=== PATIENT | female | born 1965 | race Caucasian/White ===

== ENCOUNTER 2019-05-21 10:17 | Day surgery (SDC) | payer OTHER ==
[2019-05-17 15:55] LABS: Urine Appearance CLEAR; Urine Bilirubin NEGATIVE (NEG); Urine Blood NEGATIVE (NEG); Urine Color YELLOW; Urine Glucose NEGATIVE (NEG); Urine Protein NEGATIVE (NEG); Urine Specific Gravity 1.025 (1.005-1.030); Urine Urobilinogen 0.2 mg/dL (0.2-1.0); Urine pH 6.5 (5.0-7.0)
[2019-05-17 15:56] LABS: Urine Microscopic Reflex NO UMIC
[2019-05-17 15:57] LABS: Absolute Lymphocytes (CBC) 1.4 K/uL (0.7-4.9); Basophils % 0.4 % (0-1.3); Hematocrit 32.1 % (36.0-45.0); Lymphocytes % 20.8 % (15.3-44.8); MPV 9.1 fL (7.6-11.3)
[2019-05-17 16:07] LABS: BUN Blood Urea Nitrogen 7 mg/dL (7-18); Bicarbonate 32 mmol/L (21-32); Glucose Level 85 mg/dL (74-106); Potassium 3.5 mmol/L (3.5-5.1); Sodium Level 143 mmol/L (136-145)
[2019-05-17 16:09] LABS: Protime INR 1.44
[2019-05-17 17:31] LABS: Anisocytosis 1+; Blood Morphology Comment NOTED (NOT SEEN); Hypochromasia 2+; Platelet Estimate ADEQ
[2019-05-17 17:32] LABS: Burr Cells 2+; Elliptocytes 1+; Poikilocytosis 2+
--- OUTSIDE RECORDS SUMMARY | 2019-05-21 10:20 | XMS REPORT | Encounter Summary ---
:1965 Author Care Team Providers Name Role Phone Tex Yip MD Primary Care Provider Unavailable Reason for Visit Follow Up Visit Instructions 1. Lump in left breast unlisted imaging order - breast ultrasound unlisted imaging order - mammo diagnostic left 2. Iron deficiency anemia iron deficiency anemia: care instructions CBC w/ auto diff iron + total iron-binding capacity (TIBC), serum ferritin, serum or plasma folate, serum vitamin B12, serum 3. Vitamin D deficiency vitamin D, 25-hydroxy, total, serum Vitamin D2 50,000 unit capsule 4. Chronic back pain cyclobenzaprine 10 mg tablet 5. Hypothyroidism TSH, serum or plasma 6. Depressive disorder sertraline 100 mg tablet learning about mood disorders 7. Insomnia zolpidem ER 12.5 mg tablet,extended release,multiphase Discussion Note: None recorded. Plan of Care Reminders Provider Appointments Return to on or around [facility] Office 11/24/2018 [facility] CBC W/ Auto 05/25/2018 [place] Diff [facility] (Lab) Iron + 05/25/2018 [place] [facility] Total Iron-binding [facility] (TIBC), Center (Lab) Serum Ferritin, 05/25/2018 [place] Serum or Plasma [facility] (Lab) Folate, 05/25/2018 [place] Serum [facility] (Lab) Vitamin 05/25/2018 [place] [facility] B12, Serum [facility] (Lab) Vitamin D, 05/25/2018 [place] 25-Hydroxy, Total, [facility] Serum [facility] (Lab) TSH, Serum 05/25/2018 [place] [facility] or Plasma [facility] (Lab) Referral None recorded. Procedures None recorded. Surgeries None recorded. Imaging Unlisted 05/25/[address] [place] [address] [facility] (Scheduling) Unlisted 05/25/[address] [place] [facility] [address] [facility] (Scheduling) Medications Name Start Date ciclopirox 8 % topical solution APPLY TO THE AFFECTED AREA(S) BY TOPICAL ROUTE ONCE DAILY PREFERABLY AT BEDTIME OR 8 HOURS BEFORE WASHING cyclobenzaprine 10 mg tablet Take 1 tablet 3 times a day by oral route as needed for 30 days. fluticasone 50 mcg spray hydrocodone 10 mg-acetaminophen 325 mg tablet Take 1 tablet every 4 hours by oral route. levothyroxine 200 mcg tablet Take 1 tablet every day by oral route. Lomotil 2.5 mg-0.025 mg tablet Take 2 tablets 4 times a day by oral route for 10 days. sertraline 100 mg tablet TAKE 1 AND 1/2 TABLETS (150 MG ) BY MOUTH EVERY DAY FOR 90 DAYS. Vitamin D2 take 1 capsule by mouth q 8 hours Vitamin D2 50,000 unit capsule Take 1 capsule twice a week by oral route for 90 days. zolpidem ER 12.5 mg tablet,extended release,multiphase Take 1 tablet every day by oral route for 90 days. Medications Administered None recorded. Vitals Height Weight BMI Blood Pressure 64 in 140 lbs 5 oz 24.1 kg/m2 110/80 mm[Hg] Lab Results Date Name Specimen Result Interpretation Description Value Range Status Address 05/25/2018 [facility] [place] Collection Collection [facility] (Lab): [address] [place] [address] Allergies Code Code System Name Reaction Severity Status Onset NKDA Problems None recorded. Procedures Date Name Performed by Stomach Surgery Procedure Information not available Cholecystectomy Information not available 05/25/[address] [facility] ( Scheduling) [address] [place] [id number] (Work [address]) 05/25/[address] [facility] ( Scheduling) [address] [place] [id number] (Work [address]) Vaccine List None recorded. Social History Smoking Status Never Smoker Past Encounters 05/25/2018 Lump in Left Breast; Iron Deficiency Anemia; Vitamin D Deficiency; Chronic Back Pain; Hypothyroidism; Depressive Disorder; Insomnia Tex Yip MD: [address] [place] [address], [address], [place] [address], Ph. History of Present Illness Note: <p>left breast lump: noticed it 2 weeks ago, not painful, no skin changes, no hx of breastcancer, no family hx of breast cancer, no prior breast surgeries. She is postmenopausal, she had an endomtrial ablation 17 years ago.</p><p>
</p><p>She has a hx of gastric cancer, s/p gastrectomy: sees GI doctor. due for labs</p><p>
</p><p>Chronic vitamin D deficiency: is on supplementation.</p><p>
</p><p>
</p ><p>Chronic insomnia: on ambien ER, working well for her, needs refills.</p> Review of Systems General Adult ROS Reported By: Patient Constitutional: Constitutional: no fever, no night sweats, no significant weight gain, no significant weight loss, no exercise intolerance Cardiovascular: Cardiovascular: no chest pain, no arm pain on exertion, no shortness of breath when walking, no shortness of breath when lying down, no palpitations, no known heart murmur Respiratory: Respiratory: no cough, no wheezing, no shortness of breath, no coughing up blood Gastrointestinal: Gastrointestinal: no abdominal pain, no vomiting, normal appetite, no diarrhea, not vomiting blood Genitourinary: Genitourinary: no incontinence, no difficulty urinating, no hematuria, no increased frequency Musculoskeletal: Musculoskeletal: no muscle aches, no muscle weakness, no arthralgias/joint pain, no back pain, no swelling in the extremities Integumentary: Skin: no abnormal mole, no jaundice, no rashes Neurologic: Neurologic: no loss of consciousness, no weakness, no numbness, no seizures, no dizziness, no headaches Psychiatric: Psych: no depression, feeling safe in relationship, no alcohol abuse Endocrine: Endocrine: no fatigue Hematologic/Lymphatic: Hematologic/Lymphatic no swollen glands, no bruising Physical Exam General Adult Exam - Female Reported By: Patient Constitutional: General Appearance: healthy-appearing, well-nourished, well-developed. Level of Distress: NAD. Ambulation: ambulating normally Psychiatric: Insight: good judgement. Mental Status: active and alert, normal mood, normal affect. Orientation: to time, to place, to person. Memory: recent memory normal, remote memory normal Head: Head: normocephalic, atraumatic ENMT: Ears: no lesions on external ear, EACs clear, TMs clear, TM mobility normal. Hearing: no hearing loss. Nose: no lesions on external nose, nares patent, no septal deviation, nasal passages clear, no sinus tenderness, no nasal discharge. Lips, Teeth, and Gums: no mouth or lip ulcers, no bleeding gums, normal dentition. Oropharynx: moist mucous membranes, no erythema, no exudates, tonsils not enlarged Neck: Neck: supple, trachea midline, no masses, FROM, no carotid bruits. Lymph Nodes: no cervical LAD, no supraclavicular LAD, no axillary LAD, no inguinal LAD. Thyroid: no enlargement, non-tender, no nodules Lungs: Respiratory effort: no dyspnea. Percussion: no dullness, flatness, or hyperresonance. Auscultation: breath sounds normal, good air movement, CTA except as noted, no wheezing, no rales/crackles, no rhonchi Cardiovascular: Apical Impulse: not displaced. Heart Auscultation: RRR, normal S1, normal S2, no murmurs, no rubs, no gallops. Neck vessels: no carotid bruits. Pulses including femoral / pedal: normal throughout Breast: Breast: normal appearance, no abnormal secretions, abnormal tenderness, fibrocystic Abdomen: Bowel Sounds: normal. Inspection and Palpation: soft, non-distended, no tenderness, no guarding, no rebound tenderness, no masses, no CVA tenderness. Liver: non-tender, no hepatomegaly. Spleen: non-tender, no splenomegaly. Hernia: none palpable Musculoskeletal:: Motor Strength and Tone: normal motor strength, normal tone. Joints, Bones, and Muscles: normal movement of all extremities, no bony abnormalities, no contractures, no malalignment, no tenderness. Extremities: no cyanosis, no edema, no varicosities, no palpable cord Neurologic: Gait and Station: normal gait, normal station. Cranial Nerves: grossly intact. Sensation: grossly intact, monofilament test intact. Reflexes: DTRs 2+ bilaterally throughout. Coordination and Cerebellum: [id number] intact, no tremor Skin: Inspection and palpation: no rash, no lesions, no ulcer, no abnormal nevi, no induration, no nodules, good turgor, no jaundice. Nails: normal
--- OUTSIDE RECORDS SUMMARY | 2019-05-21 10:20 | XMS REPORT | Encounter Summary ---
:1965 Author Care Team Providers Name Role Phone Tex Yip MD Primary Care Provider Unavailable Reason for Visit Follow Up Results Instructions 1. Iron deficiency anemia iron deficiency anemia: care instructions 2. Chronic back pain cyclobenzaprine 10 mg tablet 3. Hypothyroidism 4. Depressive disorder learning about mood disorders 5. Insomnia insomnia: care instructions zolpidem ER 12.5 mg tablet,extended release,multiphase 6. Seasonal allergic rhinitis seasonal allergies: care instructions Depo-Medrol 40 mg/mL suspension for injection fluticasone propionate 50 mcg/actuation nasal spray,suspension 7. Screening for malignant neoplasm of breast learning about breast cancer screening MAMMO, screening, digital, bilateral Discussion Note: None recorded. Plan of Care Reminders Provider Appointments Return to on or around [facility] Office 01/25/2019 [facility] None recorded. Referral None recorded. Procedures None recorded. Surgeries None recorded. Imaging MAMMO, 10/25/2018 [place] Screening, Digital, [facility] (Scheduling) Medications Name Start Date betamethasone, augmented 0.05 % topical cream ciclopirox 8 % topical solution APPLY TO THE AFFECTED AREA(S) BY TOPICAL ROUTE ONCE DAILY PREFERABLY AT BEDTIME OR 8 HOURS BEFORE WASHING cyclobenzaprine 10 mg tablet Take 1 tablet 3 times a day by oral route as needed for 30 days. Depo-Medrol 40 mg/mL suspension for injection Take 1 mL by injection route. diphenoxylate-atropine 2.5 mg-0.025 mg tablet Take 2 tablets 4 times a day by oral route for 10 days. fluticasone propionate 50 mcg/actuation nasal spray,suspension [place] 1 spray twice a day by intranasal route for 30 days. hydrocodone 10 mg-acetaminophen 325 mg tablet Take 1 tablet every 4 hours by oral route. levothyroxine 200 mcg tablet Take 1 tablet every day by oral route for 90 days. lidocaine 5 % topical patch sertraline 100 mg tablet TAKE 1 AND 1/2 TABLETS (150 MG ) BY MOUTH EVERY DAY FOR 90 DAYS. triamcinolone acetonide 0.147 mg/gram topical aerosol Vitamin D2 take 1 capsule by mouth q 8 hours Vitamin D2 50,000 unit capsule Take 1 capsule twice a week by oral route for 90 days. zolpidem ER 12.5 mg tablet,extended release,multiphase Take 1 tablet every day by oral route for 90 days. Medications Administered Name Date Depo-Medrol 40 mg/mL suspension for injection 9229-76-43J80:05:00 Take 1 mL by injection route. Vitals Height Weight BMI Blood Pressure 64 in 139 lbs 16 oz 24 kg/m2 117/78 mm[Hg] Lab Results None recorded. Allergies Code Code System Name Reaction Severity Status Onset NKDA Problems No Known Problems Procedures Date Name Performed by Stomach Surgery Procedure Information not available Cholecystectomy Information not available 10/25/2018 [facility]AMMO, Screening, Digital, Bilateral [place] [facility] [address] [place] [address] (Work Place) Vaccine List None recorded. Social History Smoking Status Never Smoker Past Encounters 10/25/2018 Iron Deficiency Anemia; Chronic Back Pain; Hypothyroidism; Depressive Disorder ; Insomnia; Seasonal Allergic Rhinitis; Screening for Malignant Neoplasm of Breast Tex Yip MD: [address] [place] [address], [address], [place] [address], Ph. History of Present Illness Note: <p>left [...]
</p><p>Chronic vitamin D deficiency: is on supplementation.</p><p>
</p><p>Chronic insomnia : on ambien ER, working well for her, needs refills.</p><p><br&gt ;</p><p>Chronic Back Pain: no new changes. Is on flexeril. </p&gt ; Review of Systems General Adult ROS Reported [...] DTRs 2+ bilaterally throughout. Coordination and Cerebellum: [id number] intact, no tremor Skin: Inspection and palpation: no rash, no lesions, no ulcer, no abnormal nevi, no induration, no nodules, good turgor, no jaundice. Nails: normal
--- OUTSIDE RECORDS SUMMARY | 2019-05-21 10:21 | XMS REPORT ---
:1965 Author Organization Formerly [facility] Address [address] [place] [address] Care Team Providers Name Role Phone ADAMA WETZEL Unavailable Unavailable ISAIAH KIM Unavailable Unavailable Problems This patient has no known problems. Allergies, Adverse Reactions, Alerts This patient has no known allergies or adverse reactions. Medications This patient has no known medications. Results Test Description Test Time Test Comments Text Results Atomic Results Result Comments BASIC METABOLIC PANEL 2019-04-09 06:56:00 Test Item Value Reference Range Comments SODIUM (BEAKER) (test 137 meq/L 136-145 tpxq=818) POTASSIUM (BEAKER) (test 3.7 meq/L 3.5-5.1 lfaq=354) CHLORIDE (BEAKER) (test 106 meq/L 98-107 ekxn=880) CO2 (BEAKER) (test 25 meq/L 22-29 qway=485) BLOOD UREA NITROGEN 7 mg/dL 7-21 (BEAKER) (test oqxl=592) CREATININE (BEAKER) (test 0.57 mg/dL 0.57-1.25 zvsd=278) GLUCOSE RANDOM (BEAKER) 80 mg/dL 70-105 (test fjnd=171) CALCIUM (BEAKER) (test 8.3 mg/dL 8.4-10.2 yawv=480) EGFR (BEAKER) (test 111 mL/min/1.73 sq m ESTIMATED GFR IS NOT hiiy=9821) ACCURATE CREATININE CLEARANCE IN PREDICTING GLOMERULAR FILTRATION RATE. ESTIMATED GFR IS NOT APPLICABLE FOR DIALYSIS PATIENTS. CBC W/PLT COUNT & AUTO [id number] 05:34:00 Test Item Value Reference Range Comments WHITE BLOOD CELL COUNT (BEAKER) (test kblx=575) 6.9 K/ L 3.5-10.5 RED BLOOD CELL COUNT (BEAKER) (test wgya=391) 3.80 M/ L 3.93-5.22 HEMOGLOBIN (BEAKER) (test oqjh=333) 11.1 GM/DL 11.2-15.7 HEMATOCRIT (BEAKER) (test zxpv=412) 34.9 % 34.1-44.9 MEAN CORPUSCULAR VOLUME (BEAKER) (test ugol=904) 91.8 fL 79.4-94.8 MEAN CORPUSCULAR HEMOGLOBIN (BEAKER) (test 29.2 pg 25.6-32.2 nxko=756) MEAN CORPUSCULAR HEMOGLOBIN CONC (BEAKER) (test 31.8 GM/DL 32.2-35.5 wavg=636) RED CELL DISTRIBUTION WIDTH (BEAKER) (test 23.7 % 11.7-14.4 msfz=977) PLATELET COUNT (BEAKER) (test qhhi=098) 389 K/CU MM 150-450 MEAN PLATELET VOLUME (BEAKER) (test ifji=212) 10.7 fL 9.4-12.3 NUCLEATED RED BLOOD CELLS (BEAKER) (test 0 /100 WBC 0-0 kjai=932) NEUTROPHILS RELATIVE PERCENT (BEAKER) (test 72 % wiws=864) LYMPHOCYTES RELATIVE PERCENT (BEAKER) (test 12 % wdml=564) MONOCYTES RELATIVE PERCENT (BEAKER) (test 9 % bepi=797) EOSINOPHILS RELATIVE PERCENT (BEAKER) (test 5 % yskm=324) BASOPHILS RELATIVE PERCENT (BEAKER) (test 1 % svuu=736) NEUTROPHILS ABSOLUTE COUNT (BEAKER) (test 4.95 K/ L 1.56-6.13 zeko=631) LYMPHOCYTES ABSOLUTE COUNT (BEAKER) (test 0.85 K/ L 1.18-3.74 plro=323) MONOCYTES ABSOLUTE COUNT (BEAKER) (test 0.64 K/ L 0.24-0.36 wgtv=868) EOSINOPHILS ABSOLUTE COUNT (BEAKER) (test 0.32 K/ L 0.04-0.36 dpio=756) BASOPHILS ABSOLUTE COUNT (BEAKER) (test 0.06 K/ L 0.01-0.08 htkb=416) IMMATURE GRANULOCYTES-RELATIVE PERCENT (BEAKER) 1 % 0-1 (test lqfx=3562) HEMOGLOBIN AND [id number] 17:01:00 Test Item Value Reference Range Comments HEMOGLOBIN (BEAKER) (test egjv=667) 10.5 GM/DL 11.2-15.7 HEMATOCRIT (BEAKER) (test brmy=821) 32.9 % 34.1-44.9 BASIC METABOLIC [id number] 06:22:00 Test Item Value Reference Range Comments SODIUM (BEAKER) (test 140 meq/L 136-145 mmsr=054) POTASSIUM (BEAKER) (test 3.5 meq/L 3.5-5.1 umes=589) CHLORIDE (BEAKER) (test 109 meq/L 98-107 yvus=243) CO2 (BEAKER) (test 26 meq/L 22-29 byrl=732) BLOOD UREA NITROGEN 11 mg/dL 7-21 (BEAKER) (test hwhd=992) CREATININE (BEAKER) (test 0.53 mg/dL 0.57-1.25 tqwm=780) GLUCOSE RANDOM (BEAKER) 71 mg/dL 70-105 (test gfdw=773) CALCIUM (BEAKER) (test 7.7 mg/dL 8.4-10.2 ttvw=882) EGFR (BEAKER) (test 121 mL/min/1.73 sq m ESTIMATED GFR IS NOT ggbs=9789) ACCURATE CREATININE CLEARANCE IN PREDICTING GLOMERULAR FILTRATION RATE. ESTIMATED GFR IS NOT APPLICABLE FOR DIALYSIS PATIENTS. CBC W/PLT COUNT & AUTO [id number] 04:51:00 Test Item Value Reference Range Comments WHITE BLOOD CELL COUNT (BEAKER) (test mpgq=899) 6.8 K/ L 3.5-10.5 RED BLOOD CELL COUNT (BEAKER) (test tjxq=370) 3.45 M/ L 3.93-5.22 HEMOGLOBIN (BEAKER) (test nwpx=941) 10.0 GM/DL 11.2-15.7 HEMATOCRIT (BEAKER) (test qhgz=132) 31.9 % 34.1-44.9 MEAN CORPUSCULAR VOLUME (BEAKER) (test iryk=421) 92.5 fL 79.4-94.8 MEAN CORPUSCULAR HEMOGLOBIN (BEAKER) (test 29.0 pg 25.6-32.2 sfsf=062) MEAN CORPUSCULAR HEMOGLOBIN CONC (BEAKER) (test 31.3 GM/DL 32.2-35.5 kfnt=825) RED CELL DISTRIBUTION WIDTH (BEAKER) (test 23.6 % 11.7-14.4 qmjw=729) PLATELET COUNT (BEAKER) (test pwwh=708) 231 K/CU MM 150-450 MEAN PLATELET VOLUME (BEAKER) (test ibom=453) 11.3 fL 9.4-12.3 NUCLEATED RED BLOOD CELLS (BEAKER) (test 0 /100 WBC 0-0 abbb=076) NEUTROPHILS RELATIVE PERCENT (BEAKER) (test 62 % igzd=177) LYMPHOCYTES RELATIVE PERCENT (BEAKER) (test 26 % klyt=342) MONOCYTES RELATIVE PERCENT (BEAKER) (test 7 % kkir=932) EOSINOPHILS RELATIVE PERCENT (BEAKER) (test 3 % yjfl=407) BASOPHILS RELATIVE PERCENT (BEAKER) (test 1 % jrxt=098) NEUTROPHILS ABSOLUTE COUNT (BEAKER) (test 4.22 K/ L 1.56-6.13 clds=613) LYMPHOCYTES ABSOLUTE COUNT (BEAKER) (test 1.77 K/ L 1.18-3.74 frvj=600) MONOCYTES ABSOLUTE COUNT (BEAKER) (test 0.48 K/ L 0.24-0.36 fvky=645) EOSINOPHILS ABSOLUTE COUNT (BEAKER) (test 0.23 K/ L 0.04-0.36 efni=879) BASOPHILS ABSOLUTE COUNT (BEAKER) (test 0.05 K/ L 0.01-0.08 vxpa=962) IMMATURE GRANULOCYTES-RELATIVE PERCENT (BEAKER) 1 % 0-1 (test qbsn=3461) RAD, ABDOMEN/KUB, 1 VIEW [id number] 17:49:00Reason for exam:->abdominal painShould this be performed at the bedside?->YesFINAL REPORT EXAM: KUB CLINICAL HISTORY: Abdominal pain FINDINGS: There is nonobstructive bowel gas pattern with moderate retained feces throughout the colon. Thoracolumbar spinal rods are partially visualized. Degenerative changes are noted throughout the lumbar spine with lossin disc heights. Signed: Nisreen Javier MDReport Verified Date/Time: 04/07/2019 17:49:23 Reading Location: [facility] [id number] Ortho Consult Reading Room BASI METABOLIC [id number] 06:01:00 Test Item Value Reference Range Comments SODIUM (BEAKER) (test 138 meq/L 136-145 qccr=247) POTASSIUM (BEAKER) (test 3.7 meq/L 3.5-5.1 wqay=076) CHLORIDE (BEAKER) (test 109 meq/L 98-107 ctmq=958) CO2 (BEAKER) (test 27 meq/L 22-29 cxqr=593) BLOOD UREA NITROGEN 10 mg/dL 7-21 (BEAKER) (test cnaz=480) CREATININE (BEAKER) (test 0.63 mg/dL 0.57-1.25 nfgf=535) GLUCOSE RANDOM (BEAKER) 80 mg/dL 70-105 (test mkdk=436) CALCIUM (BEAKER) (test 7.7 mg/dL 8.4-10.2 bntc=499) EGFR (BEAKER) (test 99 mL/min/1.73 sq m ESTIMATED GFR IS NOT bsac=2841) ACCURATE CREATININE CLEARANCE IN PREDICTING GLOMERULAR FILTRATION RATE. ESTIMATED GFR IS NOT APPLICABLE FOR DIALYSIS PATIENTS. CBC W/PLT COUNT & AUTO [id number] 05:46:00 Test Item Value Reference Range Comments WHITE BLOOD CELL COUNT (BEAKER) (test evtw=379) 5.7 K/ L 3.5-10.5 RED BLOOD CELL COUNT (BEAKER) (test bmno=250) 2.70 M/ L 3.93-5.22 HEMOGLOBIN (BEAKER) (test yfec=584) 7.7 GM/DL 11.2-15.7 HEMATOCRIT (BEAKER) (test pagm=329) 25.5 % 34.1-44.9 MEAN CORPUSCULAR VOLUME (BEAKER) (test sggk=277) 94.4 fL 79.4-94.8 MEAN CORPUSCULAR HEMOGLOBIN (BEAKER) (test 28.5 pg 25.6-32.2 hliv=437) MEAN CORPUSCULAR HEMOGLOBIN CONC (BEAKER) (test 30.2 GM/DL 32.2-35.5 iacj=528) RED CELL DISTRIBUTION WIDTH (BEAKER) (test 26.1 % 11.7-14.4 itxi=070) PLATELET COUNT (BEAKER) (test oewj=288) 232 K/CU MM 150-450 MEAN PLATELET VOLUME (BEAKER) (test yuml=456) 11.9 fL 9.4-12.3 NUCLEATED RED BLOOD CELLS (BEAKER) (test 0 /100 WBC 0-0 hpbj=364) NEUTROPHILS RELATIVE PERCENT (BEAKER) (test 55 % btsf=345) LYMPHOCYTES RELATIVE PERCENT (BEAKER) (test 29 % qkyq=806) MONOCYTES RELATIVE PERCENT (BEAKER) (test 9 % chvr=270) EOSINOPHILS RELATIVE PERCENT (BEAKER) (test 5 % nkep=151) BASOPHILS RELATIVE PERCENT (BEAKER) (test 1 % ppul=711) NEUTROPHILS ABSOLUTE COUNT (BEAKER) (test 3.14 K/ L 1.56-6.13 xeqq=544) LYMPHOCYTES ABSOLUTE COUNT (BEAKER) (test 1.64 K/ L 1.18-3.74 xgjd=616) MONOCYTES ABSOLUTE COUNT (BEAKER) (test 0.49 K/ L 0.24-0.36 rkfi=152) EOSINOPHILS ABSOLUTE COUNT (BEAKER) (test 0.26 K/ L 0.04-0.36 koqq=321) BASOPHILS ABSOLUTE COUNT (BEAKER) (test 0.07 K/ L 0.01-0.08 zzrs=196) IMMATURE GRANULOCYTES-RELATIVE PERCENT (BEAKER) 1 % 0-1 (test lvaq=8259) HEMOGLOBIN AND [id number] 00:02:00 Test Item Value Reference Range Comments HEMOGLOBIN (BEAKER) (test obud=298) 8.9 GM/DL 11.2-15.7 HEMATOCRIT (BEAKER) (test wxyy=691) 28.3 % 34.1-44.9 [id number] 05:14:00 Test Item Value Reference Range Comments MAGNESIUM (BEAKER) (test tfck=570) 1.6 mg/dL 1.5-3.0 COMPREHENSIVE METABOLIC [id number] 05:14:00 Test Item Value Reference Range Comments TOTAL PROTEIN (BEAKER) 5.6 gm/dL 6.0-8.5 (test jzhi=306) ALBUMIN (BEAKER) (test 3.1 g/dL 3.5-5.0 prze=4794) ALKALINE PHOSPHATASE 202 U/L 30-115 (BEAKER) (test ldzt=694) BILIRUBIN TOTAL (BEAKER) 0.3 mg/dL 0.1-1.2 (test ciii=980) SODIUM (BEAKER) (test 137 meq/L 135-148 kklc=357) POTASSIUM (BEAKER) (test 4.3 meq/L 3.6-5.5 anpz=211) CHLORIDE (BEAKER) (test 106 meq/L 98-106 gobt=198) CO2 (BEAKER) (test 22 meq/L 20-29 tiaw=400) BLOOD UREA NITROGEN 11 mg/dL 10-26 (BEAKER) (test zhwm=709) CREATININE (BEAKER) (test 0.57 mg/dL 0.50-1.20 npjd=741) GLUCOSE RANDOM (BEAKER) 79 mg/dL 70-110 (test gvou=305) CALCIUM (BEAKER) (test 8.7 mg/dL 8.5-10.5 cmhd=127) AST (SGOT) (BEAKER) (test 85 U/L 5-40 dplm=584) ALT (SGPT) (BEAKER) (test 33 U/L 5-50 tfes=464) EGFR (BEAKER) (test 111 mL/min/1.73 sq ESTIMATED GFR IS NOT ptmt=0809) m ACCURATE CREATININE CLEARANCE IN PREDICTING GLOMERULAR FILTRATION RATE. ESTIMATED GFR IS NOT APPLICABLE FOR DIALYSIS PATIENTS. CBC W/PLT COUNT & AUTO [id number] 04:53:00 Test Item Value Reference Range Comments WHITE BLOOD CELL COUNT (BEAKER) (test qdle=519) 7.5 K/ L 4.0-10.0 RED BLOOD CELL COUNT (BEAKER) (test ppbs=706) 2.77 M/ L 4.00-5.00 HEMOGLOBIN (BEAKER) (test oyhf=307) 7.9 GM/DL 12.0-15.5 HEMATOCRIT (BEAKER) (test mlka=626) 26.2 % 36.0-46.0 MEAN CORPUSCULAR VOLUME (BEAKER) (test aiwv=225) 94.6 fL 82.0-99.0 MEAN CORPUSCULAR HEMOGLOBIN (BEAKER) (test 28.5 pg 27.0-33.0 sywd=290) MEAN CORPUSCULAR HEMOGLOBIN CONC (BEAKER) (test 30.2 GM/DL 32.0-36.0 bpcn=293) RED CELL DISTRIBUTION WIDTH (BEAKER) (test 28.1 % 12.0-15.0 hadq=128) PLATELET COUNT (BEAKER) (test nefa=972) 166 K/CU MM 150-430 MEAN PLATELET VOLUME (BEAKER) (test tsjj=924) 12.4 fL 6.0-11.5 NUCLEATED RED BLOOD CELLS (BEAKER) (test 0 /100 WBC 0-0 gqft=136) NEUTROPHILS RELATIVE PERCENT (BEAKER) (test 60 % ojip=988) LYMPHOCYTES RELATIVE PERCENT (BEAKER) (test 28 % qvhi=704) MONOCYTES RELATIVE PERCENT (BEAKER) (test 8 % fioy=384) EOSINOPHILS RELATIVE PERCENT (BEAKER) (test 3 % ysnz=501) BASOPHILS RELATIVE PERCENT (BEAKER) (test 1 % gpcn=510) NEUTROPHILS ABSOLUTE COUNT (BEAKER) (test 4.51 K/ L 1.80-8.00 oxqj=075) LYMPHOCYTES ABSOLUTE COUNT (BEAKER) (test 2.07 K/ L 1.48-4.50 majw=550) MONOCYTES ABSOLUTE COUNT (BEAKER) (test 0.57 K/ L 0.00-1.30 cvfy=204) EOSINOPHILS ABSOLUTE COUNT (BEAKER) (test 0.24 K/ L 0.00-0.50 hgqm=813) BASOPHILS ABSOLUTE COUNT (BEAKER) (test 0.06 K/ L 0.00-0.20 ixuy=388) IMMATURE GRANULOCYTES-RELATIVE PERCENT (BEAKER) 1 % 0-0 (test bgjx=6396) OCCULT BLOOD, [id number] 04:00:00 Test Item Value Reference Range Comments FECAL OCCULT BLOOD (BEAKER) (test ctuo=394) Positive Negative TROPONIN [id number] 01:57:00 Test Item Value Reference Range Comments TROPONIN I (BEAKER) (test nhvp=134) < ng/mL 0.00-0.15 Troponin I (TnI) levels must be interpreted in the context of the presenting symptoms and the clinical findings. Elevated TnI levels indicate myocardial damage, but are not specific for ischemic heart disease. Elevated TnI levels are seen in patients with other cardiac conditions (including myocarditis and congestive heart failure), and slight TnI elevations occur in patients with other conditions, including sepsis, renal failure, acidosis, acute neurological disease, and persistent tachyarrhythmia.POCT-GLUCOSE [id number] 01:23:00 Test Item Value Reference Range Comments POC-GLUCOSE METER (BEAKER) 94 mg/dL 70-110 : TESTED AT [address] (test nwtw=9523) [facility] [id number]: Leather Etcher/[employer]ice BY=[id number] for Rima Danielson TROPONIN [id number] 17:53:00 Test Item Value Reference Range Comments TROPONIN I (BEAKER) (test hyrq=583) < ng/mL 0.00-0.15 Troponin I (TnI) levels must be interpreted in the context of the presenting symptoms and the clinical findings. Elevated TnI levels indicate myocardial damage, but are not specific for ischemic heart disease. Elevated TnI levels are seen in patients with other cardiac conditions (including myocarditis and congestive heart failure), and slight TnI elevations occur in patients with other conditions, including sepsis, renal failure, acidosis, acute neurological disease, and persistent tachyarrhythmia.CBC W/PLT COUNT & AUTO [id number] 17:52:00 Test Item Value Reference Range Comments WHITE BLOOD CELL COUNT (BEAKER) (test ocym=455) 10.0 K/ L 4.0-10.0 RED BLOOD CELL COUNT (BEAKER) (test zend=765) 3.20 M/ L 4.00-5.00 HEMOGLOBIN (BEAKER) (test qqkt=486) 9.2 GM/DL 12.0-15.5 HEMATOCRIT (BEAKER) (test cltn=826) 29.4 % 36.0-46.0 MEAN CORPUSCULAR VOLUME (BEAKER) (test qmix=708) 91.9 fL 82.0-99.0 MEAN CORPUSCULAR HEMOGLOBIN (BEAKER) (test 28.8 pg 27.0-33.0 chbl=602) MEAN CORPUSCULAR HEMOGLOBIN CONC (BEAKER) (test 31.3 GM/DL 32.0-36.0 yagr=007) RED CELL DISTRIBUTION WIDTH (BEAKER) (test 27.9 % 12.0-15.0 mjfh=567) PLATELET COUNT (BEAKER) (test kdzp=108) 267 K/CU MM 150-430 MEAN PLATELET VOLUME (BEAKER) (test ansg=612) 11.3 fL 6.0-11.5 NUCLEATED RED BLOOD CELLS (BEAKER) (test 0 /100 WBC 0-0 ufdk=430) (MANUAL DIFFERENTIAL)2019-04-05 17:52:00 Test Item Value Reference Range Comments NEUTROPHILS - REL (DIFF) (BEAKER) (test uzog=1740) 67 % LYMPHOCYTES - REL (DIFF) (BEAKER) (test enxn=4662) 21 % MONOCYTES - REL (DIFF) (BEAKER) (test szjm=3015) 4 % EOSINOPHILS - REL (DIFF) (BEAKER) (test zluy=4770) 6 % MYELOCYTES-REL (DIFF) (BEAKER) (test hbnd=0725) 1 % 0-0 BANDS - REL (DIFF) (BEAKER) (test xmbc=4227) 1 % 0-10 NEUTROPHILS - ABS (DIFF) (BEAKER) (test hhgg=9119) 6.70 K/ L 1.80-8.00 LYMPHOCYTES - ABS (DIFF) (BEAKER) (test dfve=2541) 2.10 K/ L 1.48-4.50 MONOCYTES - ABS (DIFF) (BEAKER) (test ujry=7181) 0.40 K/ L 0.00-1.30 EOSINOPHILS - ABS (DIFF) (BEAKER) (test zorg=9711) 0.60 K/ L 0.00-0.50 BANDS-ABS (DIFF) (BEAKER) (test bdlp=5229) 0.1 K/ L 0.0-0.8 MYELOCYTES-ABS (DIFF) (BEAKER) (test ayqo=6858) 0.10 K/ L 0.00-0.00 TOTAL COUNTED (BEAKER) (test ousz=0569) 100 BANDS + SEGMENTED NEUTROPHILS (BEAKER) (test 6.80 svpp=5977) WBC MORPHOLOGY (BEAKER) (test zzcl=590) Normal PLT MORPHOLOGY (BEAKER) (test fbll=788) Normal ANISOCYTOSIS (BEAKER) (test xbbd=916) 3+ many COMPREHENSIVE METABOLIC [id number] 17:50:00 Test Item Value Reference Range Comments TOTAL PROTEIN (BEAKER) 6.3 gm/dL 6.0-8.5 (test sfbd=611) ALBUMIN (BEAKER) (test 3.5 g/dL 3.5-5.0 sgbf=7946) ALKALINE PHOSPHATASE 222 U/L 30-115 (BEAKER) (test qjis=124) BILIRUBIN TOTAL (BEAKER) 0.2 mg/dL 0.1-1.2 (test djtn=723) SODIUM (BEAKER) (test 142 meq/L 135-148 xgtk=665) POTASSIUM (BEAKER) (test 3.9 meq/L 3.6-5.5 kdwv=239) CHLORIDE (BEAKER) (test 110 meq/L 98-106 rckq=887) CO2 (BEAKER) (test 26 meq/L 20-29 oquf=320) BLOOD UREA NITROGEN 11 mg/dL 10-26 (BEAKER) (test mugx=448) CREATININE (BEAKER) (test 0.60 mg/dL 0.50-1.20 fvby=241) GLUCOSE RANDOM (BEAKER) 94 mg/dL 70-110 (test zljo=024) CALCIUM (BEAKER) (test 8.4 mg/dL 8.5-10.5 sjky=020) AST (SGOT) (BEAKER) (test 39 U/L 5-40 dcbo=041) ALT (SGPT) (BEAKER) (test 24 U/L 5-50 tnbi=178) EGFR (BEAKER) (test 105 mL/min/1.73 sq ESTIMATED GFR IS NOT orzo=7390) m ACCURATE CREATININE CLEARANCE IN PREDICTING GLOMERULAR FILTRATION RATE. ESTIMATED GFR IS NOT APPLICABLE FOR DIALYSIS PATIENTS. [id number] 17:47:00 Test Item Value Reference Range Comments LIPASE (BEAKER) (test ngjb=031) 42 U/L 6-51 [id number] 17:46:00 Test Item Value Reference Range Comments MAGNESIUM (BEAKER) (test clky=672) 1.8 mg/dL 1.5-3.0 [id number] 17:39:00 Test Item Value Reference Range Comments AMYLASE (BEAKER) (test glna=218) 94 U/L 30-110 RAD, CHEST, 1 VIEW, NON [id number] 16:33:00Reason for exam:->pneumoniaIs the patient ?->NoShould this be performed at the bedside?-> YesFINAL REPORT AP portable chest x-ray on April 05, 2019 at 1605 COMPARISON:None. HISTORY: Pneumonia. FINDINGS: Heart size is normal. There is no pleural effusion or pneumothorax. There is slightly increased opacity of the right lower lung field. The right heart border is covered by the Buenrostro symone. This makes it hard to determine if the right heart border is desilhouetted. There is minimal atelectasis in the left lung base. No other significant pulmonary nodule, mass or infiltrate is identified. There is a right arm route PICC line in place with the tip overlying superior vena cava. Skeletal structures are remarkable for a thoracic Buenrostro rods and suggestion of persistent scoliosis of the thoracolumbar junction. Surgical steven in the left upper quadrant. IMPRESSION: Slightly increased opacity of the right lower lung but otherwise no convincing evidence of pneumonia on this exam. Signed: Shirley Art MDReport Verified Date/Time: 04/05/2019 16:33:48 Reading Location: [facility] Radiology Reading Room
--- OUTSIDE RECORDS SUMMARY | 2019-05-21 10:21 | XMS REPORT | Encounter Summary ---
:1965 Author Care Team Providers Name Role Phone Tex Yip MD Primary Care Provider Unavailable Reason for Visit medication refill Instructions 1. Musculoskeletal pain urinalysis, dipstick Medrol (Travis) 4 mg tablets in a dose pack 2. Iron deficiency anemia iron deficiency anemia: care instructions 3. Chronic back pain 4. Hypothyroidism 5. Depressive disorder learning about mood disorders 6. Insomnia insomnia: care instructions zolpidem ER 12.5 mg tablet,extended release,multiphase 7. History of malignant neoplasm of stomach Discussion Note: None recorded. Plan of Care Reminders Provider Appointments Return to on or around Tex Bernabe Office 01/25/2019 MD Phi Lab Urinalysis, 01/09/2019 In-House Dipstick Results Referral None recorded. Procedures None recorded. Surgeries None recorded. Imaging None recorded. Medications Name Start Date betamethasone, augmented 0.05 % topical cream ciclopirox 8 % topical solution APPLY TO THE AFFECTED AREA(S) BY TOPICAL ROUTE ONCE DAILY PREFERABLY AT BEDTIME OR 8 HOURS BEFORE WASHING cyclobenzaprine 10 mg tablet Take 1 tablet 3 times a day by oral route as needed for 30 days. diphenoxylate-atropine 2.5 mg-0.025 mg tablet Take 2 tablets 4 times a day by oral route for 10 days. ergocalciferol (vitamin D2) 50,000 unit capsule Take 1 capsule twice a week by oral route for 90 days. fluticasone propionate 50 mcg/actuation nasal spray,suspension Moose 1 spray twice a day by intranasal route for 30 days. hydrocodone 10 mg-acetaminophen 325 mg tablet Take 1 tablet every 4 hours by oral route. levothyroxine 200 mcg tablet Take 1 tablet every day by oral route for 90 days. lidocaine 5 % topical patch Medrol (Travis) 4 mg tablets in a dose pack Take 1 dose pk by oral route as directed. sertraline 100 mg tablet TAKE 1 AND 1/2 TABLETS (150 MG ) BY MOUTH EVERY DAY FOR 90 DAYS. triamcinolone acetonide 0.147 mg/gram topical aerosol Vitamin D2 take 1 capsule by mouth q 8 hours zolpidem ER 12.5 mg tablet,extended release,multiphase Take 1 tablet every day by oral route for 90 days. Medications Administered None recorded. Vitals Height Weight BMI Blood Pressure 64 in 150 lbs 25.7 kg/m2 111/72 mm[Hg] Lab Results None recorded. Allergies Code Code System Name Reaction Severity Status Onset NKDA Problems No Known Problems Procedures Date Name Performed by 10/21/2012 Back Surgery Information not available Stomach Surgery Procedure Information not available Cholecystectomy Information not available Vaccine List None recorded. Social History Tobacco Smoking Status Never Smoker Past Encounters 01/09/2019 Musculoskeletal Pain; Iron Deficiency Anemia; Chronic Back Pain; Hypothyroidism ; Depressive Disorder; Insomnia; History of Malignant Neoplasm of Stomach Tex Yip MD: [address] [place] [address], [address], [place] [address], Ph. History of Present Illness Note: <p>She has a hx of gastric cancer, s/p gastrectomy: sees GI doctor. due for labs</p><p>
</p><p>Chronic vitamin D deficiency: is on supplementation.</p><p>
</p& gt;<p>Chronic insomnia: on ambien ER, working well for her, needs refills. </p><p>
</p><p>Chronic Back Pain: no new changes. Is on flexeril. </p><p>
</p><p> Patient has had intermittent sharp pain to the right subcostal region radiated to the right posterior back. Patient has had one episode of nausea but no vomiting. No fevers or chills. Pain is worse when she moves her torso in extension and flexion. Denies any recent falls or trauma. Denies any skin rashes. No abdominal pain. She does have chronic pain and takes [place] and Flexeril. Denies any melena hematochezia or bright red blood per rectum.No blood in the urine. No frequency urgency or dysuria.</p> Review of Systems General Adult ROS Reported [...] no increased frequency Musculoskeletal: Musculoskeletal: no muscle weakness, no arthralgias/joint pain, no back pain, no swelling in the extremities, muscle aches Integumentary: Skin: no abnormal mole, no jaundice, [...] normal throughout Breast: Breast: normal appearance, no masses, no abnormal secretions, fibrocystic Abdomen: Bowel Sounds: normal. Inspection and [...] cyanosis, no edema, no varicosities, no palpable cord; Tenderness to the right subcostal region radiated to the right posterior back. Paraspinal muscle palpation is tender and reproduces pain on palpation Neurologic: Gait and Station: normal gait, normal station. Cranial Nerves: grossly intact. Sensation: grossly intact, monofilament test intact. Reflexes: DTRs 2+ bilaterally throughout. Coordination and Cerebellum: [id number] intact, no tremor Skin: Inspection and palpation: no rash, no lesions, no ulcer, no abnormal nevi, no induration, no nodules, good turgor, no jaundice. Nails: normal
--- OUTSIDE RECORDS SUMMARY | 2019-05-21 10:22 | XMS REPORT | Encounter Summary ---
:1965 Author Care Team Providers Name Role Phone Tex Yip MD Primary Care Provider [phone] Reason for Visit rash Instructions 1. Tinea corporis ketoconazole 2 % topical cream hydroxyzine HCl 25 mg tablet Discussion Note RTC for any other concerns Patient educational handouts: No information available. Plan of Care Patient Instructions apply as directed; take hydroxyzine for itching Reminders Provider Appointments None recorded. Lab None recorded. Referral None recorded. Procedures None recorded. Surgeries None recorded. Imaging None recorded. Medications Name Start Date cyclobenzaprine 10 mg tablet Take 1 tablet 3 times a day by oral route as needed for 30 days. ergocalciferol (vitamin D2) 50,000 unit capsule estradiol 0.01% (0.1 mg/gram) vaginal cream Insert 1 g 3 times a week by vaginal route for 30 days. fluconazole 150 mg tablet hydroxyzine HCl 25 mg tablet Take 1 tablet 3 times a day by oral route. ketoconazole 2 % topical cream APPLY TO THE AFFECTED AREA(S) BY TOPICAL ROUTE ONCE DAILY levothyroxine 200 mcg tablet Take 1 tablet every day by oral route for 90 days. metronidazole 500 mg tablet Premarin 0.625 mg/gram vaginal cream Insert 0.5 applicatorsful every day by vaginal route for 30 days. sertraline 100 mg tablet TAKE 1 AND 1/2 TABLETS (150 MG ) BY MOUTH EVERY DAY FOR 90 DAYS. zolpidem ER 12.5 mg tablet,extended release,multiphase Take 1 tablet every day by oral route for 90 days. Medications Administered None recorded. Vitals Height Weight BMI Blood Pressure 64 in 158 lbs 5 oz 27.2 kg/m2 106/74 mm[Hg] Results Lab Results None recorded. Allergies Code Code System Name Reaction Severity Status Onset NKDA Problems No Known Problems Procedures Date Name Performed by 10/21/2012 Back Surgery Information not available Stomach Surgery Procedure Information not available Cholecystectomy Information not available Vaccine List None recorded. Social History Tobacco Smoking Status Never Smoker Past Encounters 03/19/2019 Tinea Corporis Beverly Shield, LEARNING DISABILITIES TEACHER: [address] [facility] [address], [place] [address], Ph. [phone] 02/23/2019 Laryngotracheobronchitis; Chronic Insomnia Araseli Rice Liza, LEARNING DISABILITIES TEACHER: [address] [facility] [address], [place] [address] , Ph. History of Present Illness Note: pt to clinic for possible ringworm; she is fostering a cat; she has spot on face and chest; reports itching to her bodyReview of Systems: ROS as noted in the HPI Review of Systems None recorded. Physical Exam Jose Luis Brief Adult Exam - M/F Reported By: Patient Constitutional: General Appearance: healthy-appearing, well-nourished, well-developed. Level of Distress: NAD. Ambulation: ambulating normally Psychiatric: Mental Status: active and alert Lungs: Auscultation: breath sounds normal Cardiovascular: Heart Auscultation: RRR, normal S1, normal S2, no murmurs Skin: Inspection and palpation: rash; circular erythematous rash noted to right side of face and to chest; no pus or discharge
--- OUTSIDE RECORDS SUMMARY | 2019-05-21 10:22 | XMS REPORT ---
:1965 Author Organization [employer] Care Team Providers Name Role Phone Tereza, Arianna Provider Role Unavailable Allergies, Adverse Reactions, Alerts Substance Reaction Event Type N.K.D.A. Info Not Available Non Drug Allergy Problems Problem Type Condition Code Onset Dates Condition Status Problem Female stress incontinence N39.3 Active Problem Overactive bladder N32.81 Active Assessment Lichen sclerosus of female genitalia N90.4 Active Assessment Overactive bladder N32.81 Active Assessment Female stress incontinence N39.3 Active Medications Medication Code Code Instructions Start End Status Dosage System Date Date Cyclobenzaprine [facility] 09762214864 10 MG Orally Active 1 tablet as HCl Three times a needed day Clobex [facility] 68245054901 0.05 % Jan Active 1 application Externally 30, 20, to affected Twice a day 2018 2019 area Results No Known Results Summary Purpose [employer] Submission
--- OUTSIDE RECORDS SUMMARY | 2019-05-21 10:22 | XMS REPORT | Encounter Summary ---
:1965 Author Care Team Providers Name Role Phone Tex Yip MD Primary Care Provider [phone] Reason for Visit possible UTI Instructions 1. Postmenopausal urethral atrophy urinalysis, dipstick Premarin 0.625 mg/gram vaginal cream Discussion Note: None recorded.Patient educational handouts: No information available. Plan of Care Reminders Provider Appointments Return to on or around Tex [facility] Office 02/22/2019 MD Phi Lab Urinalysis, 02/08/2019 In-House Dipstick Results Referral None recorded. Procedures [...] days. fluticasone propionate 50 mcg/actuation nasal spray,suspension [place] 1 spray twice a day by intranasal route for 30 days. hydrocodone 10 mg-acetaminophen 325 mg tablet Take 1 tablet every 4 hours by oral route. levothyroxine 200 mcg tablet Take 1 tablet every day by oral route for 90 days. lidocaine 5 % topical patch methylprednisolone 4 mg tablets in a dose pack Take 1 dose pk by oral route as directed. Premarin 0.625 mg/gram vaginal cream Insert 0.5 [...] Height Weight BMI Blood Pressure 64 in 152 lbs 8 oz 26.2 kg/m2 Lab Results Date Name Specimen Result Interpretation Description Value Range Status Address 02/08/2019 Urinalysis, Leukocytes Negative In-House Dipstick Results: For Internal Use Only Nitrite negative In-House Results: For Internal Use Only Urobilinogen .2 In-House Results: For Internal Use Only Protein Negative In-House Results: For Internal Use Only Ph 5.5 In-House Results: For Internal Use Only Blood Negative In-House Results: For Internal Use Only Specific 1.030 In-House [place] Results: For Internal Use Only Ketone Negative In-House Results: For Internal Use Only Bilirubin Negative In-House Results: For Internal Use Only Glucose Negative In-House Results: For Internal Use Only Appearance Clear In-House Results: For Internal Use Only Color Yellow In-House Results: For Internal Use Only 01/09/2019 Urinalysis, Urine Leukocytes Negative In-House Dipstick Results: For Internal Use Only Urine Nitrite negative In-House Results: For Internal Use Only Urine Urobilinogen .2 In-House Results: For Internal Use Only Urine Protein Trace In-House Results: For Internal Use Only Urine Ph 6.0 In-House Results: For Internal Use Only Urine Blood Negative In-House Results: For Internal Use Only Urine Specific 1.030 In-House [place] Results: For Internal Use Only Urine Ketone Trace In-House Results: For Internal Use Only Urine Bilirubin Small In-House Results: For Internal Use Only Urine Glucose Negative In-House Results: For Internal Use Only Urine Appearance Clear In-House Results: For Internal Use Only Urine Color Yellow In-House Results: For Internal Use Only Allergies Code Code System Name Reaction Severity Status Onset NKDA Problems No Known Problems Procedures Date Name Performed by 10/21/2012 Back Surgery Information not available Stomach Surgery Procedure Information not available Cholecystectomy Information not available Vaccine List None recorded. Social History Tobacco Smoking Status Never Smoker Past Encounters 02/08/2019 Postmenopausal Urethral Atrophy Tex Yip MD: [address] [place] [address] [address], [place] [address], Ph. 01/09/2019 Musculoskeletal Pain; Iron Deficiency Anemia; Chronic Back Pain; Hypothyroidism ; Depressive Disorder; Insomnia; History of Malignant Neoplasm of Stomach Tex Yip MD: [address] [place] [address] [address], [place] [address], Ph. History of Present Illness Dysuria Reported By: Patient HPI: Quality: burning, pain. Severity: worsening, severe. Duration: intermittent, symptoms lasting over 2 weeks. Timing: gradual. Context: no prior history of STDs, no known exposure to STD, not sexually active, 0 partners in last year, LMPS/p ESURE ENDOMETRIAL ABLATION. Modifying Factors: nothing gives relief Notes: HAVING ALOT OF DRY IRRITATION IN HER OUTER EXTERNAL GENITALIA, NO DISCHARGE, NO BLEEDING, NO HX OF STD'S, NO HX OF HSV. Review of Systems General Adult ROS Reported By: Patient Constitutional: Constitutional: no fever, no night sweats Cardiovascular: Cardiovascular: no chest pain, no arm pain on exertion, no shortness of breath when walking, no shortness of breath when lying down, no palpitations, no known heart murmur Respiratory: Respiratory: no cough, no wheezing, no shortness of breath, no coughing up blood Gastrointestinal: Gastrointestinal: no abdominal pain, no vomiting, normal appetite, no diarrhea, not vomiting blood Integumentary: Skin: no abnormal mole, no jaundice, no rashes Physical Exam General Adult Exam - Female Reported By: Patient Constitutional: General Appearance: healthy-appearing, well-nourished, well-developed. Level of Distress: NAD. Ambulation: ambulating normally Lungs: Respiratory effort: no dyspnea. Percussion: no dullness, flatness, or hyperresonance. Auscultation: breath sounds normal, good air movement, CTA except as noted, no wheezing, no rales/crackles, no rhonchi Cardiovascular: Apical Impulse: not displaced. Heart Auscultation: RRR, normal S1, normal S2, no murmurs, no rubs, no gallops. Neck vessels: no carotid bruits. Pulses including femoral / pedal: normal throughout Abdomen: Bowel Sounds: normal. Inspection and Palpation: soft, non-distended, no tenderness, no guarding, no rebound tenderness, no masses, no CVA tenderness. Liver: non-tender, no hepatomegaly. Spleen: non-tender, no splenomegaly. Hernia: none palpable Female : External genitalia: ; DRY MUCOSA EXTERNAL LABIA (MINORA AND MAJORA) , SUPERFICIAL ULCERATED TEARS, NO BLEEDING, NO VESICLES, VERY DRY VAGINAL MUCOUSA AND INTROITUS, VERY DRY TOM-URETHRAL MUCOUSA AND CLITORIS. NO BLEEDING, NO VAGINAL DISCHARGE. Vagina: dry mucosa, atrophic mucosa. Cervix: no discharge
--- OUTSIDE RECORDS SUMMARY | 2019-05-21 10:22 | XMS REPORT | Encounter Summary ---
:1965 Author Care Team Providers Name Role Phone Tex Yip MD Primary Care Provider [phone] Reason for Visit sore throat Instructions 1. Laryngotracheobronchitis Zithromax Z-Travis 250 mg tablet Depo-Medrol 40 mg/mL suspension for injection dexamethasone 10 mg/mL injection solution 2. Chronic insomnia zolpidem ER 12.5 mg tablet,extended release,multiphase Discussion Note: None recorded.Patient educational handouts: No information available. Plan of Care Patient Instructions Push fluids. Reminders Provider Appointments None recorded. Lab None recorded. Referral None recorded. Procedures None recorded. Surgeries None recorded. Imaging None recorded. Medications Name Start Date cyclobenzaprine 10 mg tablet Take 1 tablet 3 times a day by oral route as needed for 30 days. estradiol 0.01% (0.1 mg/gram) vaginal cream Insert 1 g 3 times a week by vaginal route for 30 days. levothyroxine 200 mcg tablet Take 1 tablet every day by oral route for 90 days. Premarin 0.625 mg/gram vaginal cream Insert 0.5 applicatorsful every day by vaginal route for 30 days. sertraline 100 mg tablet TAKE 1 AND 1/2 TABLETS (150 MG ) BY MOUTH EVERY DAY FOR 90 DAYS. Zithromax Z-Travis 250 mg tablet TAKE 2 TABLETS (500 MG) BY ORAL ROUTE ONCE DAILY FOR 1 DAY THEN 1 TABLET (250 MG) BY ORAL ROUTE ONCE DAILY FOR 4 DAYS zolpidem ER 12.5 mg tablet,extended release,multiphase Take 1 tablet every day by oral route for 90 days. Medications Administered None recorded. Vitals Height Weight BMI Blood Pressure 64 in 153 lbs 7 oz 26.3 kg/m2 110/73 mm[Hg] Results Lab Results Date Name Specimen Result Interpretation [...] For Internal Use Only Specific 1.030 In-House [place] Results: For Internal Use Only Ketone Negative [...] Tobacco Smoking Status Never Smoker Past Encounters 02/23/2019 Laryngotracheobronchitis; Chronic Insomnia Araseli De Jesus NETWORK CONTROLLER: [address] [facility] [address], [place] [address] , Ph. 02/08/2019 Postmenopausal Urethral Atrophy Tex Yip MD: [address] [facility] [address], [place] [address], Ph. History of Present Illness Note: Sorethroat, hoarse voice, ear ache x 2 weeks , dizziness at work, almost passed out this morningafter climbing up a flight of stairs. Review of Systems General Adult ROS Reported By: Patient Constitutional: Constitutional: no fever, no night sweats, no significant weight gain, no significant weight loss, no exercise intolerance Eyes: Eyes: no dry eyes, no irritation, no vision change ENMT: Ears: no difficulty hearing, ear pain. Nose: no frequent nosebleeds, nose/sinus problems. Mouth/Throat: no bleeding gums, no snoring, no dry mouth, no mouth ulcers, no teeth problems, No Post Nasal Dripping, Constantly clearing the throat, hiccups, itching throat, (normal) weak voice: constant, sore throat Cardiovascular: Cardiovascular: no chest pain, no arm pain on exertion, no shortness of breath when walking, no shortness of breath when lying down, no palpitations, no known heart murmur Respiratory: Respiratory: no coughing up blood, cough, wheezing, shortness of breath Gastrointestinal: Gastrointestinal: no abdominal pain, no vomiting, normal appetite, no diarrhea, not vomiting blood Genitourinary: Genitourinary: no incontinence, no difficulty urinating, no hematuria, no increased frequency Musculoskeletal: Musculoskeletal: no muscle aches, no muscle weakness, no arthralgias/joint pain, no back pain, no swelling in the extremities Integumentary: Skin: no abnormal mole, no jaundice, no rashes Neurologic: Neurologic: no loss of consciousness, no weakness, no seizures, no headaches, dizziness Psychiatric: Psych: no depression, no sleep disturbances, feeling safe in relationship, no alcohol abuse Endocrine: Endocrine: fatigue Hematologic/Lymphatic: Hematologic/Lymphatic no swollen glands, no bruising Allergic/Immunologic: Allergy/Immunologic: no runny nose, no itching, no hives , no frequent sneezing, sinus pressure Physical Exam General Adult Exam - Female Reported By: Patient Constitutional: General Appearance: healthy-appearing, well-nourished, well-developed. Level of Distress: moderate distress. Ambulation: ambulating normally Psychiatric: Insight: good judgement. Mental Status: active and alert, normal mood, normal affect. Orientation: to time, to place, to person. Memory: recent memory normal, remote memory normal Head: Head: normocephalic, atraumatic Eyes: Lids and Conjunctivae: non-injected, no discharge, no pallor. Pupils: PERRLA. EOM: EOMI. Lens: clear. Sclerae: non-icteric. Vision: peripheral vision grossly intact ENMT: Ears: no lesions on external ear, EACs clear, TM bulging. Hearing: no hearing loss. Nose: no lesions on external nose, nares patent, sinus tenderness, nasal discharge--purulent. Lips, Teeth, and Gums: no mouth or lip ulcers, no bleeding gums, normal dentition. Oropharynx: moist mucous membranes, no erythema, no exudates Neck: Lymph Nodes: no cervical LAD, no supraclavicular LAD, no axillary LAD, no inguinal LAD Lungs: Respiratory effort: no dyspnea. Percussion: no [...]
--- OUTSIDE RECORDS SUMMARY | 2019-05-21 10:22 | XMS REPORT | Continuity of Care Document ---
:1965 Author Organization [facility] Address [address] [place] [address] Allergies, Adverse Reactions, Alerts No known allergies. Medications Medication Status Dose Units Route Sig Qty Days Start End Instructions Date Date B-Complex Active 1 ORAL Daily 30 30 Vitamins Cyclobenzaprine Active 1 ORAL Three Hcl Times A Day as needed for Muscle Spasms Ergocalciferol Active 1 ORAL Once Daily Estrogens, Active 1 NOT Once Conjugated APPLICABLE Daily Vaginal Hydrocodone-Acet Active 1 ORAL Four 120 30 aminophen Times 10/325MG * Daily As Needed as needed for Pain Hydroxyzine Hcl Active 1 ORAL Three PRN ITCHING Times A DUE TO Day as RINGWORM/RASH needed for Itching Ketoconazole Active TOPICAL Once Daily Levothyroxine Active 1 ORAL Every Sodium Morning Sertraline Hcl Active 1.5 ORAL Once Daily Zolpidem Active 1 ORAL Once Tartrate Daily At Bedtime Problems Active Problems Medical Problem Onset Date Status Chronic anxiety Active Chronic back pain Active Cystocele Active GERD (gastroesophageal reflux disease) Active GI bleed Active History of gastric cancer Active Hypothyroidism (acquired) Active Lower extremity edema Active Malnutrition Active Microcytic anemia Active Tinea corporis Active History of Ganesh-en-Y gastric bypass Active Inactive/Resolved Problems Medical Problem Onset Date Status Anemia Resolved Hypokalemia Resolved Procedures Procedure Date Performed Status X-ray of chest, single view March 26, 2019 completed Computed tomography of abdomen and pelvis with contrast March 26, 2019 completed X-ray of chest, single view March 27, 2019 completed Computed tomography of head without contrast March 29, 2019 completed Computed tomography of abdomen and pelvis without March 29, 2019 completed contrast X-ray of right knee, three views March 29, 2019 completed XR small bowel series April 02, 2019 completed Radionuclide gastrointestinal bleeding study April 05, 2019 completed Relevant Diagnostic Tests and/or Laboratory Data Laboratory Results Test Date/Time Result Interpretation Reference Result Comment Performing Range Site White Blood March 7.1 4.0-11.5 [facility] [address] Count 2018 3:[address] [place], [place] [id number] Red Blood Count March 3.09 3.80-5.20 [facility] [address] 2018 3:[address] [place] [address] Hemoglobin March 8.3 10.5-15.7 [facility], [facility] 2018 3:[address] [place], [place] [id number] Hematocrit November 27.8 34.0-50.0 [facility] 2018 3:[address] [place], [place] [id number] Mean March 90.0 86-100 [facility] Corpuscular 2018 Volume 3:[address] [place], [place] [id number] Mean November 26.9 26.2-33.4 [facility] Corpuscular 2018 Hemoglobin 3:[address] [place], [place] [id number] Mean March 29.9 30-34 [facility] Corpuscular 2018 Hemoglobin 3:[address] [place] [address] Concent Red Cell March 25.7 12.0-15.5 [facility] Distribution 2018 Width 3:[address] [place], [place] [id number] Platelet Count March 141 165-450 [facility] 2018 3:[address] [place], [place] [id number] Absolute March 13.4 [facility] Immature 2018 Platelet 3:[address] [place], [place] [id number] Fraction Immature March 9.5 0-8 [facility] Platelet 2018 Fraction 3:[address] [place], [place] [id number] Mean Platelet March 11.6 9.4-12.6 [facility] Volume 2018 3:[address] [place], [place] [id number] Neutrophils (%) March 53.1 44.4-80.1 [facility] (Auto) 2018 3:[address] [place], [place] [id number] Immature March 1.1 0.0-0.4 [facility] Granulocyte % 2018 (Auto) 3:[address] [place], [place] [id number] Lymphocytes (%) March 31.2 10.0-50.0 [facility] (Auto) 2018 3:[address] [place], [place] [id number] Monocytes (%) March 9.5 3.6-12.0 [facility] (Auto) 2018 3:55[facility] [address] Eosinophils (%) March 4.4 0.0-5.4 [facility] (Auto) 2018 3:55[facility] [address] Basophils (%) March 0.7 0.1-1.2 [facility] (Auto) 2018 3:55[place] [id number] Neutrophils # November 3.75 1.56-6.13 [facility] (Auto) 2018 3:55[place] [id number] Absolute November 0.1 0.0-0.03 [facility], [address] [place] [address] Immature 2018 Granulocyte 3:55[place] [id number] (auto Lymphocytes # November 2.2 1.18-3.74 [facility], [address] [place] [address] (Auto) 2018 3:55[place] [id number] Monocytes # March 0.67 0.24-0.86 [facility], [address] [place] [address] (Auto) 2018 3:55[place] [id number] Eosinophils # March 0.31 0.04-0.36 [facility], [address] [place] [address] (Auto) 2018 3:55[facility] [address] Basophils # November 0.05 0.01-0.08 [facility], [address] [place] [address] (Auto) 2018 3:55[place] [id number] Nucleated Red November 0 0-0.2 [facility] [address] [place] [address] Blood Cells % 2018 3:[address] [place], [place] [id number] Nucleated Red November 0 0 [facility] [address] [place] [address] Blood Cells # 2018 3:55[place] [id number] Iron Level April 17 37-145 [facility], [facility] 2018 7:02[facility] [address] Total Iron March 337 260-445 [facility], 2018 Capacity 7:02[facility] [address] Iron Saturation March 8 12-45 [facility], [address] [place] [address] 2018 7:02[place] [id number] Prothrombin March 12.1 10.3-12.3 THERAPEUTIC [facility], [facility] 2018 LEVEL: 1.5 to 7:02am 1.9 [place] [address] normal range of PT Prothromb Time March 1.16 Recommended [facility], 104 International 2018 therapeutic Ratio 7:02am range for [place] [address] patients receiving warfarin (coumadin) therapy: INR is 2.0 to 3.0Recommended range for patients with mechanical prosthetic heart valves: INR is 2.5 to 3.5 Urine Color March LIGHT [facility], 104 2018 YELLOW 10:20pm [place] [id number] Urine November CLEAR CLEAR [facility], 104 Appearance 2018 10:20pm [place] [id number] Urine Glucose November NEGATIVE NEGATIVE [facility], 104 (UA) 2018 10:20pm [place] [id number] Urine Bilirubin November NEGATIVE NEGATIVE [facility], [facility] 2018 10:20pm [place] [id number] Urine Ketones March NEGATIVE NEGATIVE [facility], [facility] 2018 10:20pm [place] [id number] Urine Specific November <=1.005 1.003-1.03 [facility], [facility] [place] 2018 0 10:20pm [place] [id number] Urine Blood November NEGATIVE NEGATIVE [facility], 104 2018 10:20pm [place] [id number] Urine pH March 7.000 5-9 [facility], [facility] 2018 10:20pm [place] [id number] Urine Protein March NEGATIVE NEGATIVE [facility], [facility] 2018 10:20pm [place] [id number] Urine November 0.2 0.2-1.0 [facility], [facility] Urobilinogen 2018 10:20pm [place] [id number] Urine Nitrate November NEGATIVE NEGATIVE [facility], 104 2018 10:20pm [place] [id number] Urine Leukocyte March NEGATIVE NEGATIVE [facility], 104 Esterase 2018 10:20pm [place] [id number] Urine RBC March 0-3 0-5 [facility] 104 2018 10:20pm [place] [id number] Urine WBC March 0-2 0-5 [facility], [facility] 2018 10:20pm [place] [id number] Urine November 0-5 0-5 [facility], 104 2018 Cells 10:20pm [place] [id number] Urine Bacteria March None None [facility], 104 2018 Detected Detect 10:20pm [facility] [address] Urine Culture March NO [facility], [address] Reflexed 2018 10:20pm [facility] [address] POC Capillary March 74 70 - 110 [facility], [address] Blood Glucose 2018 (Chem) 10:21am [facility] [address] Random Glucose March 86 74-106 [facility], 104 2018 3:55am [facility] [address] Blood Urea March 13 6-20 [facility], 104 Nitrogen 2018 3:55am [facility] [address] Serum March 277 280-300 [facility], 104 Osmolality 2018 3:55am [facility] [address] Creatinine March 0.6 0.50-0.90 [facility], 104 2018 3:55am [facility] [address] Glomerular March > 60.00 GFR RESULTS ARE [facility], [facility] Filtration Rate 2018 REPORTED IN Calc 3:55am mL/min/1.73m2.N [facility] [address] ormal GFR: >60mL/minModera tely decreased GFR: 30-59 mL/minSeverely decreased GFR: 15-29 mL/minKidney Failure (or Dialysis): <15 mL/minThe calculated eGFR is not valid for patients younger than 18 years or older than 75 years. Prealbumin March 8.0 20-40 [facility], 104 2018 7:02am [facility] [address] BUN/Creatinine March 21.7 12-20 [facility], 104 Ratio 2018 3:55am [facility] [address] Sodium Level March 139 135-145 [facility], 104 2018 3:55am [facility] [address] Potassium Level March 4.2 3.5-5.2 [facility], 104 2018 3:55am [facility] [address] Chloride Level March 104 98-108 [facility], 104 2018 3:55am [facility] [address] Carbon Dioxide March 27 21-32 [facility], [address] Level 2018 3:55am [facility] [address] Anion Gap March 12.2 12-20 [facility], 104 2018 3:55am [facility] [address] Calcium Level March 8.4 8.6-10.0 [facility], [address] [place] [address] 2018 3:55am [facility] [address] Phosphorus November 2.6 2.5-4.5 [facility], [address] [place] [address] Level 2018 7:02am [facility] [address] Magnesium Level March 1.8 1.6-2.6 [facility], [address] [place] [address] 2018 7:02am [place] [id number] Total Protein March 7.2 6.6-8.7 [facility], [address] [place] [address] 2018 10:07pm [place] [id number] Albumin November 4.0 3.5-5.2 [facility], [address] [place] [address] 2018 10:07pm [place] [id number] Globulin March 3.2 [facility], [address] [place] [address] 2018 10:07pm [place] [id number] Albumin/Globuli March 1.3 >1.0 [facility], [address] [place] [address] n Ratio 2018 10:07pm [place] [id number] Total Bilirubin March 0.3 0.0-1.2 [facility], [address] [place] [address] 2018 10:07pm [place] [id number] Aspartate Amino March 28 15-32 [facility], [facility] Transf 2018 (AST/SGOT) 10:07pm [place] [id number] Alanine March 15 0-33 [facility], [address] [place] [address] Aminotransferas 2018 e (ALT/SGPT) 10:07pm [place] [id number] FE-Ybd-N-Type March 350 0-125 [facility], [address] [place] [address] Natriuretic 2018 Peptide 10:07pm [place] [id number] Total Alkaline March 282 35-105 [facility], [address] [place] [address] Phosphatase 2018 10:07pm [place] [id number] Thyroid March 12.30 0.36-3.74 [facility], [facility] Stimulating 2018 Hormone (TSH) 2:40am [place] [id number] Creatine Kinase March 168 20-180 [facility], [address] [place] [address] 2018 10:07pm [place] [id number] Troponin I March < 0.30 0.0-0.5 Published [facility], [address] [place] [address] 2018 clinical 10:07pm studies have [place] [address] shown elevations of cTnI in patients with myocardial injury, as seen in unstable angina pectoris, cardiac contusions, and heart transplants. Elevations have also been seen in patients with rhabdomyolysis and polymyositis.El evated troponin levels point to myocardial injury, but are not necessarily indicative of an ischemic mechanism. The term KS should be used when there is evidence of cardiac damage, as detected by marker proteins in a clinical setting consistent with myocardial ischemia. If the clinical circumstance suggests that an ischemic mechanism is unlikely, other causes of cardiac injury should be considered.For diagnostic purposes, the results should always be assessed in conjunction with the patient's medical history, clinical examination and other findings. Creatine Kinase March 3.1 0.0-3.6 DIAGNOSTIC [facility], [address] 2018 CITERIA: 10:07pm [facility] [address] [facility] RELATIVE INDEX -----SUGGESTIVE OF NON-AMI < or=5 N/AGRAY ZONE (INCONCLUSIVE) > 5 < or=4SUGGESTIVE OF AMI >5 > 4 Diagnostic Imaging Reports Report Dictated Date/Time Dictated By Status March 26, 2019 10:26pm AUGUSTINA TOVAR MD completed Patient: SIENA VIERA MR#: [id number] : [address] PURNIMA MEYER MD Pt Status: [facility] Pt Location: [facility] Date/Time: 03/26/19 [facility] Primary Care Physician: MG HILLMAN MD Technologist(s): NAEL LOPES Procedure(s): [id number] RAD/CHEST 1 VIEW Signed EXAMINATION: CHEST 1 VIEW INDICATION: SOB. COMPARISON: None FINDINGS: TUBES and LINES: None. LUNGS: Lungs are moderately inflated. Central vascular congestion. There is no evidence of pneumonia or pulmonary edema. PLEURA: No pleural effusion or pneumothorax. HEART AND MEDIASTINUM: The cardiomediastinal silhouette is unremarkable. BONES AND SOFT TISSUES: No acute osseous abnormality. Partially seen bilateral thoracic and upper lumbar spinal fixation hardware. UPPER ABDOMEN: No free air under the diaphragm. IMPRESSION: No acute radiographic abnormality. Signed by: Dr. Augustina Tovar MD on 03/26/2019 10:26 PM Transcribed By: [email or web address] SIGNED <electronically signed by AUGUSTINA TOVAR MD > 25 28 AUGUSTINA TOVAR MD March 27, 2019 12:06am AUGUSTINA TOVAR MD completed Patient: SIENA VIERA MR#: [id number] : [address] PURNIMA MEYER MD Pt Status: REG ER Pt Location: [facility] Date/Time: 03/26/192236 Primary Care Physician: MG HILLMAN MD Technologist(s): NAEL LOPES Procedure(s): [id number] CT/CT ABD & PELVIS W Signed EXAM: CT Abdomen and Pelvis WITH contrast INDICATION: Anemia, history of stomach and bladder cancer. COMPARISON: None. TECHNIQUE: Abdomen and pelvis were scanned utilizing a multidetector helical scanner from the lung base to the pubic symphysis after administration of IV contrast. Coronal and sagittal reformations were obtained. Routine protocol was performed. Scan was performed when during portal venous phase. IV CONTRAST: 150 mL of Omnipaque 300 ORAL CONTRAST: Water COMPLICATIONS: None RADIATION DOSE: Total DLP: (DLP x 0.015 x size factor) mGy*cm Estimated effective dose: (DLP x 0.015 x size factor) mSv CTDIvol has been reviewed. It is below the limits set by the Radiation Protocol Committee (RPC). FINDINGS: LINES and TUBES: None. LOWER THORAX: Extensive coronary atherosclerosis. HEPATOBILIARY: Diffuse hepatic steatosis. No evidence of focal lesion. No biliary ductal dilation. GALLBLADDER: Status post cholecystectomy. SPLEEN: No splenomegaly. PANCREAS: No focal masses or ductal dilatation. ADRENALS: No adrenal nodules KIDNEYS/URETERS: Kidneys enhance symmetrically. No evidence of hydronephrosis, solid mass, or stone. GI TRACT: Status post Ganesh-en-Y gastric bypass. Dilated distal esophagus containing predominately air and small amount of fluid. There is a bowel anastomosis in the right lower quadrant. Small hiatal hernia. No evidence of wall thickening or distension. Appendix is normal. PELVIC ORGANS/BLADDER: Unremarkable. LYMPH NODES: No lymphadenopathy. VESSELS: Scattered mild atherosclerotic calcifications in the abdominal aorta and branch vessels. PERITONEUM / RETROPERITONEUM: No free air or fluid. BONES AND SOFT TISSUES: No acute osseous abnormality. Partially seen lower thoracic spinal fixation hardware with associated streak artifact. CONCLUSION: No etiology identified for the patient's anemia. Status post Ganesh-en-Y gastric bypass without evidence of bowel obstruction. Small hiatal hernia with air and fluid-filled distention of the distal esophagus. No definite CT evidence of mass. Suggest correlation with reported clinical history of malignancy. Diffuse hepatic steatosis. Signed by: Dr. 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1965 Requested By: Coty MEYER Order Number: [id number] Reading MD: Yovanny Anaya.A.A.C Measurements Intervals Emily Rate: 98 P: 26 NV: 138 QRS: 35 QRSD: 94 T: -15 QT: 384 QTc: 491 Interpretive Statements Sinus rhythm Borderline repolarization abnormality Borderline prolonged QT interval Electronically Signed On 03-28-2019 4:41:03 THERAPIST PHYSICAL by Yovanny Anaya.A.A.C Transcribed By: [email or web address] SIGNED <electronically signed by MATTY SUÁREZ MD> 0 0 MATTY SUÁREZ MD March 27, 2019 7:34pm RUBEN NEWMAN MD completed Patient: SIENA VIERA MR#: [id number] : 1965 Ordering DrKatelyn: MG HILLMAN MD Pt Status: ADM IN [facility] Date/Time: 03/27/19 Primary Care Physician: MG HILLMAN MD Technologist(s): NAEL LOPES Procedure(s): [id number] RAD/CHEST 1 VIEW Signed EXAMINATION: CHEST 1 VIEW COMPARISON: Chest x-ray 03/26/2019 INDICATION: PICC line placement DISCUSSION: Frontal view of the chest obtained at 1920 hours. HEART AND MEDIASTINUM: The cardiomediastinal silhouette is unremarkable. LINES: Right PICC line terminates in the SVC without pneumothorax LUNGS: Stable pulmonary hyperinflation. No pneumonia or pulmonary edema. PLEURA: No pleural effusion or pneumothorax. BONES AND SOFT TISSUES: Fusion hardware in the thoracic spine is intact and stable in position. No focal osseous lesions. The soft tissues are normal. IMPRESSION: Right PICC line terminates in the SVC without pneumothorax. No acute cardiopulmonary process. Signed by: Dr. Ruben Newman MD on 03/27/2019 7:34 PM Transcribed By: [email or web address] SIGNED <electronically signed by RUBEN NEWMAN MD> 33 [phone] RUBEN NEWMAN MD March 29, 2019 10:39am ANGELITA FAY MD completed Patient: SIENA VIERA MR#: [id number] : 1965 Ordering DrKatelyn: SHIV YOUNG [id number] Pt Location: [facility] Date/Time: 03/29/19 1013 Primary Care Physician: MG HILLMAN MD Technologist(s): HORACE CASTILLO Procedure(s): [id number] RAD/KNEE RIGHT 3V Signed Exam: Right knee 3 views History: Pain Comparison: None. Findings: No fracture or malalignment. Joint spaces preserved. No abnormal soft tissue calcification or soft tissue defect. Impression: No acute osseous abnormality Signed by: Dr. Angelita Fay M.D. on 03/29/2019 10:39 AM Transcribed By: [email or web address] SIGNED <electronically signed by ANGELITA FAY MD> [id number] ANGELITA FAY MD March 29, 2019 11:18am CB DELGADO MD completed Patient: SIENA VIERA MR#: [id number] : 1965 Ordering DrKatelyn: SHIV YOUNG-Adriane [id number] Pt Location: [facility] Date/Time: 03/29/19 1013 Primary Care Physician: MG HILLMAN MD Technologist(s): ANDREA BORJAS Procedure(s): [id number] CT/CT ABD & PELVIS W/O Signed CT of the abdomen and pelvis, without contrast, 03/29/2019. History: Fall. Comparison: 03/26/2019. Technique: Multidetector CT scanning of the abdomen and pelvis was performed from the level of the lung bases to the inferior pubic rami without intravenous or oral contrast. Coronal and sagittal multiplanar reformations were obtained. RADIATION DOSE: Total DLP: 447 mGy*cm Dose modulation, iterative reconstruction, and/or weight based adjustment of the mA/kV was utilized to reduce the radiation dose to as low as reasonably achievable. Discussion: Examination is limited without contrast. Lung bases: There is left basilar atelectasis. Abdomen: Diffuse low-density of the liver is present. Cholecystectomy clips are noted. The biliary tree, spleen, pancreas, adrenal glands, and kidneys are unremarkable. The abdominal aorta is within normal limits. Postsurgical changes are present involving the stomach and distal small bowel. There is no bowel dilatation. There is no evidence of adenopathy or free fluid. Pelvis: The bladder and uterus are unremarkable. There is no evidence of free fluid or adenopathy. Bones and soft tissues: Degenerative changes and scoliosis of the the lumbar spine are present without evidence of lytic or sclerotic lesion. Postsurgical changes are noted in the lower thoracic spine. IMPRESSION: 1. Severe fatty infiltration of the liver. 2. Status post cholecystectomy and gastric bypass. No acute or traumatic abnormality. Signed by: Cb Delgado on 03/29/2019 11:18 AM Transcribed By: [email or web address] SIGNED <electronically signed by CB DELGADO MD> [id number] CB DELGADO MD March 29, 2019 11:24am CHEYANNE DE LEÓN MD completed Patient: SIENA VIERA MR#: [id number] : [address] SHIV YOUNG-C [id number] Pt Location: [facility] Date/Time: 03/29/19 1013 Primary Care Physician: MG HILLMAN MD Technologist(s): ANDREA BORJAS Procedure(s): [id number] CT/CT HEAD W/O CONTRAST Signed Exam: Head CT without contrast History: Trauma, fall Comparison studies: None Technique: Axial images were obtained from the skull base to the vertex. Coronal and sagittal images reconstructed from the axial data. Dose modulation, iterative reconstruction, and/or weight based adjustment of the mA/kV was utilized to reduce the radiation dose to as low as reasonably achievable. Radiation dose: Total DLP: 780 mGy*cm. Estimated effective dose: DLP x 0.015 Intravenous contrast: None Findings: Scalp: No abnormalities. Bones: No fractures, blastic or lytic lesions. Brain sulci: Appropriate for age. Ventricles: Normal in size and configuration. No hydrocephalus. Extra-axial spaces: No masses, no fluid collection. Parenchyma: No mass, acute hemorrhage or acute cortical vascular insults. A few scattered hypodensities in the supratentorial white matter are nonspecific but most compatible with chronic small vessel ischemic changes. Sellar/suprasellar region: No abnormalities. Craniocervical junction: Patent foramen magnum. No Chiari one malformation. Included paranasal sinuses: Left sphenoid sinus is partially opacified. The adjacent left sphenoethmoidal recess and left olfactory recess are likewise opacified, possibly by hypodense polyp. Incidental findings: Atherosclerotic calcifications in the carotid siphons. IMPRESSION: 1. No acute abnormalities. 2. Mild chronic microvascular ischemic changes. Signed by: Dr. Cheyanne De León M.D. on 03/29/2019 11:24 AM Transcribed By: [email or web address] SIGNED <electronically signed by CHEYANNE DE LEÓN MD> [id number] CHEYANNE DE LEÓN MD Health Concerns No known health concerns documented Advance Directives Advance Directive Response Recorded Date/Time Advance Directive on File No March 27, 2019 3:56am Patient/Family Given Education Material R/T No March 27, 2019 3:56am Directives? Chief Complaint and Reason for Visit Chief Complaint HYPOKALEMIA, ANEMIA Reason for Visit Chronic anxiety Chronic back pain Microcytic anemia GI bleed History of gastric cancer History of Ganesh-en-Y gastric bypass GERD (gastroesophageal reflux disease) Lower extremity edema Hypothyroidism (acquired) Malnutrition Cystocele Tinea corporis Chronic back pain Chronic anxiety Encounters Encounter Location(s) Arrival/Admit Date Discharge/Depart Date Provider(s) Discharged Karol March 27, 2019 April 05, 2019 [facility] 2:16am 1:38pm [facility] Recent Diagnosis Onset Date Chronic anxiety Chronic back pain Microcytic anemia GI bleed History of gastric cancer GERD (gastroesophageal reflux disease) Lower extremity edema Hypothyroidism (acquired) Malnutrition Cystocele Tinea corporis Chronic back pain Chronic anxiety Assessments Diagnosis Onset Date Resolution Status Chronic anxiety Active Chronic back pain Active Microcytic anemia Active GI bleed Active History of gastric cancer Active GERD (gastroesophageal reflux disease) Active Lower extremity edema Active Hypothyroidism (acquired) Active Malnutrition Active Cystocele Active Tinea corporis Active Chronic back pain Active Chronic anxiety Active Functional Status No Functional Status information available Goals No Goals Information Available Immunizations No Immunization Information Available Mental Status No Mental Status Information Available Medical Equipment No Medical Equipment Information available Insurance Providers Guarantor Siena Viera Address [address] [place] [address] [address] [facility] [id number] Contact Info. Home Phone: Payer Policy Id Coverage Id Subscriber's Subscriber Id Effective Expiration Name Date Date [employer] [id number] Maximiliano [id number] Siena Plan of Treatment Future Tests Future scheduled test information is unavailable Pending Tests Test Name Date ordered Differential Comment March 26, 2019 10:07pm Future Visits Future appointment information is unavailable Referrals to Other Providers Referral information is unavailable Future Procedures Future procedure information is unavailable Future Medications Future medication information is unavailable Patient Instructions Patient instructions are unavailable Social History Smoking Status Status Date of Observation Never smoked tobacco (finding) March 27, 2019 3:56am Assigned Sex Female Vital Signs Vital Reading Result Collection Date/Time
--- OUTSIDE RECORDS SUMMARY | 2019-05-21 10:23 | XMS REPORT | Encounter Summary ---
:1965 Author Care Team Providers Name Role Phone Tex Yip MD Primary Care Provider [phone] Jie David MD Paediatric Surgeon [phone] Evan Maradiaga MD Pain Management [phone] Reason for Visit TCM (Transitional Care Management) Instructions 1. Iron deficiency anemia iron deficiency anemia: care instructions hematology referral - please call pt for appt. Next available appt please. Reason: Iron def anemia handicap placard Carafate 1 gram tablet Protonix 40 mg tablet,delayed release Discussion Note: None recorded. Plan of Care Reminders Provider Appointments Follow up 04/24/2019 Temo Ernandez 4:30PM MD Yash Return to on or around [facility] 05/12/2019 MD Phi Lab None recorded. Referral Hematology 04/12/2019 Meghan Kaur MD Referral Procedures None recorded. Surgeries None recorded. Imaging None recorded. Medications Name Start Date Carafate 1 gram tablet Take 1 tablet 4 times a day by oral route for 30 days. cyclobenzaprine 10 mg tablet Take 1 tablet 3 times a day by oral route as needed for 30 days. ergocalciferol (vitamin D2) 50,000 unit capsule estradiol 0.01% (0.1 mg/gram) vaginal cream Insert 1 g 3 times a week by vaginal route for 30 days. hydrocodone 10 mg-acetaminophen 325 mg tablet levothyroxine 200 mcg tablet Take 1 tablet every day by oral route for 90 days. Premarin 0.625 mg/gram vaginal cream Insert 0.5 applicatorsful every day by vaginal route for 30 days. Protonix 40 mg tablet,delayed release Take 1 tablet every day by oral route for 30 days. sertraline 100 mg tablet TAKE 1 AND 1/2 TABLETS (150 MG ) BY MOUTH EVERY DAY FOR 90 DAYS. triamcinolone acetonide 0.5 % topical ointment zolpidem ER 12.5 mg tablet,extended release,multiphase Take 1 tablet every day by oral route for 90 days. Medications Administered None recorded. Vitals Height Weight BMI Blood Pressure 64 in 144 lbs 9 oz 24.8 kg/m2 115/80 mm[Hg] Results Lab Results Date Name Specimen Result Interpretation Description Value Range Status Address 04/10/2019 [facility] Blood Normal [facility] Blood sent to Final [place] Collection Collection [facility] (Lab): [address] [place] [address] 04/04/2019 CBC W/ Auto Normal White Blood 7.1 K/uL 4.0-11 [facility] [place] Diff Count .5 [facility] (Lab): [address] [place] [address] Red Blood 3.09 M/uL 3.80-5 Final [place] Count .20 [facility] M/[facility] (Lab): [address] [place] [address] Hemoglobin 8.3 g/dL 10.5-1 Final [place] 5.7 Regional g/dL [facility] (Lab): [address] [place] [address] Hematocrit 27.8 % 34.0-5 Final [place] 0.0 % [facility] (Lab): [address] [place] [address] Normal Mean 90.0 fL 86-100 Final [place] Corpuscular fL [facility] Volume [facility] (Lab): [address] [place] [address] Normal Mean 26.9 pg 26.2-3 Final [place] Corpuscular 3.4 pg [facility] Hemoglobin [facility] (Lab): [address] [place] [address] Mean 29.9 g/dL 30-34 Final [place] Corpuscular HGB g/dL [facility] Conc [facility] (Lab): [address] [place] [address] Red Cell 25.7 % 12.0-1 Final [place] Distribution 5.5 % [facility] Width [facility] (Lab): [address] [place] [address] Low Platelet Count 141 K/uL 165-45 Final [place] 0 K/uL [facility] (Lab): [address] [place] [address] Normal Ipf# 13.4 Final [place] [facility] (Lab): [address] [place] [address] High Ipf% 9.5 % 0-8 % Final [place] [facility] (Lab): [address] [place] [address] Normal Mean Platelet 11.6 fL 9.4-12 Final [place] Volume .6 fL [facility] (Lab): [address] [place] [address] Normal Neutrophils % 53.1 % 44.4-8 Corrected [place] 0.1 % [facility] ([facility]): [address] [place] [address] High Ig% 1.1 % 0.0-0. Corrected [place] 4 % [facility] (Lab): [address] [place] [address] Normal Lymphocyte% 31.2 % 10.0-5 Final [place] 0.0 % [facility] (Lab): [address] [place] [address] Normal Morrison % 9.5 % 3.6-12 Final [place] .0 % [facility] (Lab): [address] [place] [address] Normal Eos % 4.4 % 0.0-5. Final [place] 4 % [facility] (Lab): [address] [place] [address] Normal Basophil % 0.7 % 0.1-1. Final [place] 2 % [facility] (Lab): [address] [place] [address] Normal Absolute 3.75 K/uL 1.56-6 Final [place] Neutrophil .13 [facility] Count K/ [facility] (Lab): [address] [place] [address] Ig# 0.1 K/uL 0.0-0. Corrected [place] 03 [facility] K/ [facility] (Lab): [address] [place] [address] Normal Lymph # 2.2 K/uL 1.18-3 Corrected [place] .74 [facility] K/ [facility] (Lab): [address] [place] [address] Normal Morrison # 0.67 K/uL 0.24-0 Final [place] .86 [facility] K/ [facility] (Lab): [address] [place] [address] Normal Eos # 0.31 K/uL 0.04-0 Final [place] .36 [facility] K/ [facility] (Lab): [address] [place] [address] Normal Basophil # 0.05 K/uL 0.01-0 Corrected [place] .08 [facility] K/ [facility] (Lab): [address] [place] [address] Normal Nrbc% 0 /100 0-0.2 Final [place] WBC /100 [facility] WBC [facility] (Lab): [address] [place] [address] Normal Nrbc# 0 K/uL 0 K/uL Final [place] [facility] (Lab): [address] [place] [address] 04/04/2019 BMP, Serum or Normal Glucose 86 mg/dL 74-106 Final [place] Plasma mg/dL [facility] (Lab): [address] [place] [address] Normal Blood Urea 13 mg/dL 6-20 Final [place] Nitrogen mg/dL [facility] (Lab): [address] [place] [address] Low Osmolality 277 280-30 Final [place] Calculated,seru mOsm/kg 0 Regional m mOsm/k [facility] g Center (Lab): [address] [place] [address] Normal Creatinine 0.6 mg/dL 0.50-0 Final [place] .90 [facility] mg/dL [facility] (Lab): [address] [place] [address] Normal Glomerular >60.00 Final [place] Filtration Rate [facility] (Lab): [address] [place] [address] High BUN/creatinine 21.7 12-20 Final [place] Ratio [facility] (Lab): [address] [place] [address] Normal Sodium Level 139 135-14 Final [place] mmol/L 5 [facility] mmol/L [facility] (Lab): [address] [place] [address] Normal Potassium 4.2 3.5-5. Final [place] Level mmol/L 2 [facility] mmol/L [facility] (Lab): [address] [place] [address] Normal Chloride Level 104 98-108 Final [place] mmol/L mmol/L [facility] (Lab): [address] [place] [address] Normal Co2 27 mmol/L 21-32 Final [place] mmol/L [facility] (Lab): [address] [place] [address] Normal Anion Gap 12.2 12-20 Final [place] mEq/L mEq/L [facility] (Lab): [address] [place] [address] Low Calcium Level 8.4 mg/dL 8.6-10 Final [place] .0 Regional mg/dL [facility] (Lab): [address] [place] [address] 04/03/2019 Hemoglobin + Normal Hemoglobin 8.5 g/dL 10.5-1 Corrected [place] Hematocrit, 5.7 [facility] Blood g/dL [facility] (Lab): [address] [place] [address] Low Hematocrit 27.1 % 34.0-5 Final [place] 0.0 % [facility] (Lab): [address] [place] [address] 04/02/2019 Hemoglobin + Normal Hemoglobin 6.9 g/dL 10.5-1 Final [place] Hematocrit, 5.7 [facility] Blood g/dL [facility] Center (Lab): [address] [place] [address] Normal Hematocrit 23.8 % 34.0-5 Final [place] 0.0 % [facility] (Lab): [address] [place] [address] 04/02/2019 Hemoglobin + CRITICAL Hemoglobin 7.4 g/dL 10.5-1 Final [place] Hematocrit, LOW 5.7 [facility] Blood g/dL [facility] (Lab): [address] [place] [address] Low Hematocrit 25.6 % 34.0-5 Final [place] 0.0 % [facility] (Lab): [address] [place] [address] 04/02/2019 Hemoglobin + CRITICAL Hemoglobin 6.9 g/dL 10.5-1 Final [place] Hematocrit, LOW 5.7 [facility] Blood g/dL [facility] (Lab): [address] [place] [address] Low Hematocrit 23.8 % 34.0-5 Final [place] 0.0 % [facility] (Lab): [address] [place] [address] 04/02/2019 Type + Rh Bld 4+ Final [place] Screen, Blood [facility] (Lab): [address] [place] [address] ABO + Rh Pnl O Final [place] Bld positive [facility] (Lab): [address] [place] [address] 04/02/2019 Type + Cross, Type + Xm Pnl Final [place] Blood Bld [facility] (Lab): [address] [place] [address] 04/02/2019 Upc Results Final [facility] (Lab): [address] [place] [address] 04/02/2019 Upc Results Final [facility] (Lab): [address] [place] [address] 04/02/2019 Upc Results Final [facility] (Lab): [address] [place] [address] 04/02/2019 Upc Results Final [facility] (Lab): [address] [place] [address] 04/02/2019 Upc Results [place] [facility] (Lab): [address] [place] [address] 04/02/2019 Upc Results Final [facility] (Lab): [address] [place] [address] 04/02/2019 Upc Results [place] [facility] (Lab): [address] [place] [address] 04/02/2019 Up Results Final [facility] (Lab): [address] [place] [address] 04/02/2019 Upc Results Final [facility] (Lab): [address] [place] [address] 04/01/2019 BMP, Serum or Normal Glucose 91 mg/dL 74-106 Final [place] Plasma mg/dL [facility] (Lab): [address] [place] [address] Normal Blood Urea 19 mg/dL 6-20 Final [place] Nitrogen mg/dL [facility] (Lab): [address] [place] [address] Low Osmolality 276 280-30 Final [place] Calculated,seru mOsm/kg 0 [facility] m mOsm/k [facility] g Center (Lab): [address] [place] [address] Low Creatinine 0.4 mg/dL 0.50-0 Final [place] .90 Regional mg/dL [facility] (Lab): [address] [place] [address] Normal Glomerular >60.00 [place] Filtration Rate [facility] (Lab): [address] [place] [address] High BUN/creatinine 47.5 12-20 Final [place] Ratio [facility] (Lab): [address] [place] [address] Normal Sodium Level 137 135-14 Final [place] mmol/L 5 [facility] mmol/L [facility] (Lab): [address] [place] [address] Normal Potassium 4.0 3.5-5. Final [place] Level mmol/L 2 [facility] mmol/L [facility] (Lab): [address] [place] [address] Normal Chloride Level 103 98-108 Final [place] mmol/L mmol/L [facility] (Lab): [address] [place] [address] Normal Co2 29 mmol/L 21-32 Final [place] mmol/L [facility] (Lab): [address] [place] [address] Low Anion Gap 9.0 mEq/L 12-20 Final [place] mEq/L [facility] (Lab): [address] [place] [address] Low Calcium Level 7.9 mg/dL 8.6-10 Final [place] .0 [facility] mg/dL [facility] (Lab): [address] [place] [address] 03/31/2019 Cbc Normal White Blood 7.4 K/uL 4.0-11 Final [place] Count .5 [facility] (Lab): [address] [place] [address] Low Red Blood 3.65 M/uL 3.80-5 Final [place] Count .20 [facility] M/[facility] (Lab): [address] [place] [address] Low Hemoglobin 8.9 g/dL 10.5-1 Final [place] 5.7 Regional g/dL [facility] (Lab): [address] [place] [address] Low Hematocrit 30.1 % 34.0-5 Final [place] 0.0 % [facility] (Lab): [address] [place] [address] Low Mean 82.5 fL 86-100 Final [place] Corpuscular fL [facility] Volume [facility] (Lab): [address] [place] [address] Low Mean 24.4 pg 26.2-3 Final [place] Corpuscular 3.4 pg [facility] Hemoglobin [facility] (Lab): [address] [place] [address] Mean 29.6 g/dL 30-34 Final [place] Corpuscular HGB g/dL [facility] Conc [facility] (Lab): [address] [place] [address] High Red Cell 25.2 % 12.0-1 Final [place] Distribution 5.5 % [facility] Width [facility] (Lab): [address] [place] [address] Low Platelet Count 133 K/uL 165-45 Final [place] 0 K/uL [facility] (Lab): [address] [place] [address] Normal Mean Platelet 10.2 fL 9.4-12 Final [place] Volume .6 fL [facility] (Lab): [address] [place] [address] 03/30/2019 CBC W/ Auto Normal White Blood 6.4 K/uL 4.0-11 Final [place] Diff Count .5 [facility] K[facility] (Lab): [address] [place] [address] Low Red Blood 3.61 M/uL 3.80-5 Final [place] Count .20 [facility] (Lab): [address] [place] [address] Low Hemoglobin 8.6 g/dL 10.5-1 Final [place] 5.7 [facility] g/dL [facility] (Lab): [address] [place] [address] Low Hematocrit 29.3 % 34.0-5 Final [place] 0.0 % [facility] (Lab): [address] [place] [address] Low Mean 81.2 fL 86-100 Final [place] Corpuscular fL [facility] Volume [facility] (Lab): [address] [place] [address] Low Mean 23.8 pg 26.2-3 Final [place] Corpuscular 3.4 pg [facility] Hemoglobin [facility] (Lab): [address] [place] [address] Mean 29.4 g/dL 30-34 Final [place] Corpuscular HGB g/dL [facility] Conc [facility] (Lab): [address] [place] [address] High Red Cell 23.8 % 12.0-1 Final [place] Distribution 5.5 % [facility] Width [facility] (Lab): [address] [place] [address] Low Platelet Count 144 K/uL 165-45 Final [place] 0 K/uL [facility] (Lab): [address] [place] [address] Mean Platelet 10.2 fL 9.4-12 Final [place] Volume .6 fL [facility] [place] (Lab): [address] [place] [address] Normal Neutrophils % 58.3 % 44.4-8 Corrected [place] 0.1 % [facility] (Lab): [address] [place] [address] Normal Ig% 0.3 % 0.0-0. Corrected [place] 4 % [facility] (Lab): [address] [place] [address] Normal Lymphocyte% 27.6 % 10.0-5 Final [place] 0.0 % [facility] [place] (Lab): [address] [place] [address] Normal Morrison % 9.6 % 3.6-12 Final [place] .0 % [facility] (Lab): [address] [place] [address] Normal Eos % 3.7 % 0.0-5. Final [place] 4 % [facility] (Lab): [address] [place] [address] Normal Basophil % 0.5 % 0.1-1. Final [place] 2 % [facility] (Lab): [address] [place] [address] Normal Absolute 3.75 K/uL 1.56-6 Final [place] Neutrophil .13 Regional Count K/[facility] (Lab): [address] [place] [address] Normal Ig# 0.0 K/uL 0.0-0. Corrected [place] 03 [facility] (Lab): [address] [place] [address] Normal Lymph # 1.8 K/uL 1.18-3 Corrected [place] .74 [facility] (Lab): [address] [place] [address] Normal Morrison # 0.62 K/uL 0.24-0 Final [place] .86 [facility] (Lab): [address] [place] [address] Normal Eos # 0.24 K/uL 0.04-0 Final [place] .36 [facility] (Lab): [address] [place] [address] Normal Basophil # 0.03 K/uL 0.01-0 Corrected [place] .08 [facility] (Lab): [address] [place] [address] Normal Nrbc% 0 /100 0-0.2 Final [place] WBC /100 [facility] WBC [facility] (Lab): [address] [place] [address] Normal Nrbc# 0 K/uL 0 K/uL Final [facility] (Lab): [address] [place] [address] 03/30/2019 Differential Normal Neutrophils [facility] Blood [facility] (Lab): [address] [place] [address] Normal Band [facility] (Lab): [address] [place] [address] Normal Lymphocyte [facility] (Lab): [address] [place] [address] Normal Atypical Lymph [facility] (Lab): [address] [place] [address] Normal Monocyte [facility] (Lab): [address] [place] [address] Normal Eosinophil [facility] (Lab): [address] [place] [address] Normal Basophil [facility] (Lab): [address] [place] [address] Normal Blasts [facility] (Lab): [address] [place] [address] Normal Platelet [facility] Estimate [facility] (Lab): [address] [place] [address] Normal Platelet [facility] Morphology [facility] (Lab): [address] [place] [address] Normal Hypochromasia [facility] (Lab): [address] [place] [address] Normal Anisocytosis [facility] (Lab): [address] [place] [address] Normal Microcytosis [facility] (Lab): [address] [place] [address] Normal Macrocytosis [facility] (Lab): [address] [place] [address] Normal Toxic Incomplete [facility] (Lab): [address] [place] [address] Normal Dohle Bodies Incomplete [place] [facility] (Lab): [address] [place] [address] Normal Hypersegmented Incomplete [place] Polys [facility] (Lab): [address] [place] [address] Normal Rouleau Incomplete [place] [facility] (Lab): [address] [place] [address] Normal Toxic Incomplete [place] Vacuolation [facility] (Lab): [address] [place] [address] Normal Differential Incomplete [place] comment-P [facility] (Lab): [address] [place] [address] 03/30/2019 BMP, Serum or Normal Glucose 97 mg/dL 74-106 Final [place] Plasma mg/dL [facility] (Lab): [address] [place] [address] Normal Blood Urea 12 mg/dL 6-20 Final [place] Nitrogen mg/dL [facility] (Lab): [address] [place] [address] Normal Osmolality 287 280-30 Final [place] Calculated,seru mOsm/kg 0 [facility] m mOsm/k Medical g Center (Lab): [address] [place] [address] Normal Creatinine 0.7 mg/dL 0.50-0 Final [place] .90 Regional mg/dL [facility] (Lab): [address] [place] [address] Normal Glomerular >60.00 Final [place] Filtration Rate [facility] (Lab): [address] [place] [address] Normal BUN/creatinine 17.1 12-20 Final [place] Ratio [facility] (Lab): [address] [place] [address] Normal Sodium Level 144 135-14 Final [place] mmol/L 5 [facility] mmol/L [facility] (Lab): [address] [place] [address] Normal Potassium 3.5 3.5-5. Final [place] Level mmol/L 2 [facility] mmol/L [facility] (Lab): [address] [place] [address] High Chloride Level 111 98-108 Final [place] mmol/L mmol/L [facility] (Lab): [address] [place] [address] Normal Co2 23 mmol/L 21-32 Final [place] mmol/L [facility] (Lab): [address] [place] [address] Normal Anion Gap 13.5 12-20 Final [place] mEq/L mEq/L [facility] (Lab): [address] [place] [address] Low Calcium Level 7.7 mg/dL 8.6-10 Final [place] .0 [facility] mg/dL [facility] (Lab): [address] [place] [address] 03/29/2019 Hemoglobin + Low Hemoglobin 8.0 g/dL 10.5-1 Final [place] Hematocrit, 5.7 Regional Blood g/dL [facility] (Lab): [address] [place] [address] Low Hematocrit 27.3 % 34.0-5 Final [place] 0.0 % [facility] (Lab): [address] [place] [address] 03/29/2019 BMP, Serum or Normal Glucose 99 mg/dL 74-106 Final [place] Plasma mg/dL [facility] (Lab): [address] [place] [address] Normal Blood Urea 12 mg/dL 6-20 Final [place] Nitrogen mg/dL [facility] (Lab): [address] [place] [address] Low Osmolality 279 280-30 Final [place] Calculated,seru mOsm/kg 0 Regional m mOsm/k [facility] (Lab): [address] [place] [address] Low Creatinine 0.4 mg/dL 0.50-0 Final [place] .90 [facility] mg/dL [facility] (Lab): [address] [place] [address] Normal Glomerular >60.00 Final [place] Filtration Rate [facility] (Lab): [address] [place] [address] High BUN/creatinine 30.0 12-20 Final [place] Ratio [facility] (Lab): [address] [place] [address] Normal Sodium Level 140 135-14 Final [place] mmol/L 5 Regional mmol/L [facility] (Lab): [address] [place] [address] Low Potassium 3.3 3.5-5. Final [place] Level mmol/L 2 Regional mmol/L [facility] (Lab): [address] [place] [address] Normal Chloride Level 107 98-108 Final [place] mmol/L mmol/L [facility] (Lab): [address] [place] [address] Normal Co2 27 mmol/L 21-32 Final [place] mmol/L [facility] (Lab): [address] [place] [address] Low Anion Gap 9.3 mEq/L 12-20 Final [place] mEq/L [facility] (Lab): [address] [place] [address] Low Calcium Level 7.9 mg/dL 8.6-10 Final [place] .0 Regional mg/dL [facility] (Lab): [address] [place] [address] 03/29/2019 Hemoglobin + Low Hemoglobin 8.1 g/dL 10.5-1 Final [place] Hematocrit, 5.7 Regional Blood g/dL [facility] (Lab): [address] [place] [address] Low Hematocrit 27.1 % 34.0-5 Final [place] 0.0 % [facility] (Lab): [address] [place] [address] 03/29/2019 Hemoglobin + Low Hemoglobin 9.5 g/dL 10.5-1 Final [place] Hematocrit, 5.7 [facility] Blood g/dL [facility] (Lab): [address] [place] [address] Low Hematocrit 30.7 % 34.0-5 Final [place] 0.0 % [facility] (Lab): [address] [place] [address] 03/28/2019 Hemoglobin + CRITICAL Hemoglobin 7.7 g/dL 10.5-1 Final [place] Hematocrit, LOW 5.7 [facility] Blood g/dL [facility] (Lab): [address] [place] [address] Low Hematocrit 25.2 % 34.0-5 Final [place] 0.0 % [facility] (Lab): [address] [place] [address] 03/28/2019 CBC W/ Auto Normal White Blood 4.3 K/uL 4.0-11 Final [place] Diff Count .5 [facility] K/uL [facility] (Lab): [address] [place] [address] Low Red Blood 3.62 M/uL 3.80-5 Final [place] Count .20 [facility] M/ Medical Center (Lab): [address] [place] [address] Low Hemoglobin 8.3 g/dL 10.5-1 Final [place] 5.7 Regional g/dL Medical Center (Lab): [address] [place] [address] Low Hematocrit 27.7 % 34.0-5 Final [place] 0.0 % [facility] (Lab): [address] [place] [address] Low Mean 76.5 fL 86-100 Final [place] Corpuscular fL [facility] Volume Medical Center (Lab): [address] [place] [address] Low Mean 22.9 pg 26.2-3 Final [place] Corpuscular 3.4 pg [facility] Hemoglobin Medical [facility] (Lab): [address] [place] [address] Normal Mean 30.0 g/dL 30-34 Final [place] Corpuscular HGB g/dL [facility] Conc [facility] (Lab): [address] [place] [address] High Red Cell 22.5 % 12.0-1 Final [place] Distribution 5.5 % [facility] (Lab): [address] [place] [address] Normal Platelet Count 175 K/uL 165-45 Final [place] 0 K/uL [facility] (Lab): [address] [place] [address] Normal Mean Platelet 10.0 fL 9.4-12 Final [place] Volume .6 fL [facility] (Lab): [address] [place] [address] Normal Neutrophils % 47.8 % 44.4-8 Corrected [place] 0.1 % [facility] (Lab): [address] [place] [address] Normal Ig% 0.2 % 0.0-0. Corrected [place] 4 % [facility] (Lab): [address] [place] [address] Normal Lymphocyte% 35.3 % 10.0-5 Final [place] 0.0 % [facility] (Lab): [address] [place] [address] Normal Morrison % 9.9 % 3.6-12 Final [place] .0 % [facility] (Lab): [address] [place] [address] High Eos % 6.1 % 0.0-5. Final [place] 4 % [facility] (Lab): [address] [place] [address] Normal Basophil % 0.7 % 0.1-1. Final [place] 2 % [facility] (Lab): [address] [place] [address] Normal Absolute 2.03 K/uL 1.56-6 Final [place] Neutrophil .13 Regional Count K/uL Medical Center (Lab): [address] [place] [address] Normal Ig# 0.0 K/uL 0.0-0. Corrected [place] 03 [facility] K/ Medical Center (Lab): [address] [place] [address] Normal Lymph # 1.5 K/uL 1.18-3 Corrected [place] .74 Regional K/ Medical Center (Lab): [address] [place] [address] Normal Morrison # 0.42 K/uL 0.24-0 Final [place] .86 [facility] K/ [facility] (Lab): [address] [place] [address] Normal Eos # 0.26 K/uL 0.04-0 Final [place] .36 [facility] K/ [facility] (Lab): [address] [place] [address] Normal Basophil # 0.03 K/uL 0.01-0 Corrected [place] .08 [facility] K/uL [facility] (Lab): [address] [place] [address] High Nrbc% 1 /100 0-0.2 Final [place] WBC /100 [facility] WBC [facility] (Lab): [address] [place] [address] Normal Nrbc# 0 K/uL 0 K/uL Final [facility] (Lab): [address] [place] [address] 03/28/2019 Differential Normal Neutrophils Incomplete [place] Panel, Blood [facility] (Lab): [address] [place] [address] Normal Band [facility] (Lab): [address] [place] [address] Normal Lymphocyte [facility] (Lab): [address] [place] [address] Normal Atypical Lymph [facility] (Lab): [address] [place] [address] Normal Monocyte [facility] (Lab): [address] [place] [address] Normal Eosinophil [facility] (Lab): [address] [place] [address] Normal Basophil [facility] (Lab): [address] [place] [address] Normal Blasts [facility] (Lab): [address] [place] [address] Normal Platelet [facility] Estimate [facility] (Lab): [address] [place] [address] Normal Platelet [facility] Morphology [facility] (Lab): [address] [place] [address] Normal Hypochromasia [facility] (Lab): [address] [place] [address] Normal Anisocytosis [facility] (Lab): [address] [place] [address] Normal Microcytosis [facility] (Lab): [address] [place] [address] Normal Macrocytosis [facility] (Lab): [address] [place] [address] Normal Toxic [facility] Granulation [facility] (Lab): [address] [place] [address] Normal Hypersegmented [facility] (Lab): [address] [place] [address] Normal Rouleau [facility] (Lab): [address] [place] [address] Normal Toxic [facility] Vacuolation [facility] (Lab): [address] [place] [address] 03/28/2019 BMP, Serum or Normal Glucose 81 mg/dL 74-106 Final [place] Plasma mg/dL [facility] (Lab): [address] [place] [address] Normal Blood Urea 8 mg/dL 6-20 Final [place] Nitrogen mg/dL [facility] (Lab): [address] [place] [address] Low Osmolality 277 280-30 Final [place] Calculated,seru mOsm/kg 0 Regional m mOsm/k [facility] (Lab): [address] [place] [address] Low Creatinine 0.4 mg/dL 0.50-0 Final [place] .90 Regional mg/dL Medical Center (Lab): [address] [place] [address] Normal Glomerular >60.00 Final [place] Filtration Rate [facility] (Lab): [address] [place] [address] Normal BUN/creatinine 20.0 12-20 Final [place] Ratio [facility] (Lab): [address] [place] [address] Normal Sodium Level 140 135-14 Final [place] mmol/L 5 Regional mmol/L [facility] (Lab): [address] [place] [address] Normal Potassium 3.5 3.5-5. Final [place] Level mmol/L 2 Regional mmol/L [facility] Center (Lab): [address] [place] [address] Normal Chloride Level 108 98-108 Final [place] mmol/L mmol/L [facility] (Lab): [address] [place] [address] Normal Co2 24 mmol/L 21-32 Final [place] mmol/L [facility] (Lab): [address] [place] [address] Low Anion Gap 11.5 12-20 Final [place] mEq/L mEq/L [facility] (Lab): [address] [place] [address] Low Calcium Level 7.9 mg/dL 8.6-10 Final [place] .0 Regional mg/dL [facility] Center (Lab): [address] [place] [address] 03/28/2019 Hemoglobin + Low Hemoglobin 9.2 g/dL 10.5-1 Final [place] Hematocrit, 5.7 Regional Blood g/dL Medical Center (Lab): [address] [place] [address] Low Hematocrit 29.9 % 34.0-5 Final [place] 0.0 % [facility] (Lab): [address] [place] [address] 03/28/2019 Hemoglobin + Low Hemoglobin 8.9 g/dL 10.5-1 Final [place] Hematocrit, 5.7 [facility] Blood g/dL Medical Center (Lab): [address] [place] [address] Low Hematocrit 29.7 % 34.0-5 Final [place] 0.0 % [facility] (Lab): [address] [place] [address] 03/28/2019 Hemoglobin + Low Hemoglobin 9.1 g/dL 10.5-1 Final [place] Hematocrit, 5.7 Regional Blood g/dL Medical Center (Lab): [address] [place] [address] Low Hematocrit 30.2 % 34.0-5 Final [place] 0.0 % [facility] (Lab): [address] [place] [address] 03/28/2019 Hemoglobin + Low Hemoglobin 8.6 g/dL 10.5-1 Final [place] Hematocrit, 5.7 Regional Blood g/dL Medical Center (Lab): [address] [place] [address] Low Hematocrit 28.0 % 34.0-5 Final [place] 0.0 % [facility] (Lab): [address] [place] [address] 03/28/2019 Hemoglobin + Low Hemoglobin 8.8 g/dL 10.5-1 Final [place] Hematocrit, 5.7 [facility] Blood g/dL Medical Center (Lab): [address] [place] [address] Low Hematocrit 29.1 % 34.0-5 Final [place] 0.0 % [facility] (Lab): [address] [place] [address] 03/27/2019 TSH, Serum or High Thyroid 12.30 0.36-3 Final [place] Plasma Stimulating uIU/mL .74 Regional Hormone L uIU/mL Medical Center (Lab): [address] [place] [address] 03/27/2019 Hemoglobin + Normal Hemoglobin 5.9 g/dL 10.5-1 Final [place] Hematocrit, 5.7 Regional Blood g/dL Medical Center (Lab): [address] [place] [address] Normal Hematocrit 20.4 % 34.0-5 Final [place] 0.0 % [facility] (Lab): [address] [place] [address] 03/27/2019 PT/INR Normal Prothrombin 12.1 10.3-1 Final [place] Time seconds 2.3 [facility] (Lab): [address] [place] [address] Normal Inr 1.16 Final [place] [facility] (Lab): [address] [place] [address] 03/27/2019 BMP, Serum or Normal Glucose 91 mg/dL 74-106 Final [place] Plasma mg/dL [facility] ([facility]): [address] [place] [address] Normal Blood Urea 8 mg/dL 6-20 Final [place] Nitrogen mg/dL [facility] (Lab): [address] [place] [address] Low Osmolality 277 280-30 Final [place] Calculated,seru mOsm/kg 0 [facility] m mOsm/k [facility] g Center (Lab): [address] [place] [address] Low Creatinine 0.4 mg/dL 0.50-0 Final [place] .90 Regional mg/dL Medical Center (Lab): [address] [place] [address] Normal Glomerular >60.00 Final [place] Filtration Rate [facility] (Lab): [address] [place] [address] Normal BUN/creatinine 20.0 12-20 Final [place] Ratio [facility] (Lab): [address] [place] [address] Normal Sodium Level 140 135-14 Final [place] mmol/L 5 [facility] mmol/L [facility] (Lab): [address] [place] [address] Normal Potassium 3.8 3.5-5. Final [place] Level mmol/L 2 [facility] mmol/L [facility] (Lab): [address] [place] [address] Normal Chloride Level 106 98-108 Final [place] mmol/L mmol/L [facility] (Lab): [address] [place] [address] Normal Co2 25 mmol/L 21-32 Final [place] mmol/L [facility] (Lab): [address] [place] [address] Normal Anion Gap 12.8 12-20 Final [place] mEq/L mEq/L [facility] (Lab): [address] [place] [address] Low Calcium Level 8.1 mg/dL 8.6-10 Final [place] .0 Regional mg/dL Medical Center (Lab): [address] [place] [address] 03/27/2019 Prealbumin, Low Pre-albumin 8.0 mg/dL 20-40 Final [place] Serum mg/dL [facility] (Lab): [address] [place] [address] 03/27/2019 Phosphorus, Normal Phosphorous 2.6 mg/dL 2.5-4. Final [place] Serum or Level 5 Regional Plasma mg/dL [facility] (Lab): [address] [place] [address] 03/27/2019 Magnesium, Normal Magnesium 1.8 mg/dL 1.6-2. Final [place] QN, Level 6 Regional Unspecified mg/dL [facility] Spec[facility] (Lab): [address] [place] [address] 03/27/2019 Iron + Total Low Iron (Fe) 26 ug/dL 37-145 Final [place] Iron-binding ug/dL [facility] ([facility] (Lab): [address] [place] [address] Normal Total Iron 337 ug/dL 260-44 Final [place] Binding 5 Regional Capacity ug/dL Medical Center (Lab): [address] [place] [address] Low % Saturation 8 % 12-45 Final [place] % [facility] (Lab): [address] [place] [address] 03/27/2019 Type + Rh Bld 3+ Final [place] Screen, Blood [facility] (Lab): [address] [place] [address] ABO + Rh Pnl O Final [place] Bld positive [facility] (Lab): [address] [place] [address] 03/27/2019 Type + Cross, Type + Xm Pnl Final [place] Blood Bld [facility] (Lab): [address] [place] [address] 03/27/2019 Upc Results Final [facility] (Lab): [address] [place] [address] 03/27/2019 Upc Results Final [facility] (Lab): [address] [place] [address] 03/27/2019 Upc Results Final [facility] (Lab): [address] [place] [address] 03/27/2019 Up Results Final [facility] (Lab): [address] [place] [address] 03/27/2019 Up Results Final [facility] (Lab): [address] [place] [address] 03/27/2019 Upc Results Final [facility] (Lab): [address] [place] [address] 03/27/2019 Upc Results Final [facility] (Lab): [address] [place] [address] 03/27/2019 Upc Results Final [facility] (Lab): [address] [place] [address] 03/27/2019 Upc Results Final [facility] (Lab): [address] [place] [address] 03/27/2019 Upc Results Final [facility] (Lab): [address] [place] [address] 03/27/2019 Hemoglobin + Normal Hemoglobin 7.4 g/dL 10.5-1 Final [place] Hematocrit, 5.7 Regional Blood g/dL Medical Center (Lab): [address] [place] [address] Normal Hematocrit 24.5 % 34.0-5 Final [place] 0.0 % [facility] (Lab): [address] [place] [address] 03/27/2019 Up Results Final [facility] (Lab): [address] [place] [address] 03/27/2019 Upc Results Final [facility] (Lab): [address] [place] [address] 03/27/2019 Upc Results Final [facility] (Lab): [address] [place] [address] 03/27/2019 Up Results Final [facility] (Lab): [address] [place] [address] 03/27/2019 Up Results Final [facility] (Lab): [address] [place] [address] 03/27/2019 Upc Results Final [facility] (Lab): [address] [place] [address] 03/27/2019 Hemoglobin + Low Hemoglobin 8.5 g/dL 10.5-1 Final [place] Hematocrit, 5.7 Regional Blood g/dL Medical Center (Lab): [address] [place] [address] Low Hematocrit 28.2 % 34.0-5 Final [place] 0.0 % [facility] (Lab): [address] [place] [address] 03/27/2019 Hemoglobin + Low Hemoglobin 8.2 g/dL 10.5-1 Final [place] Hematocrit, 5.7 Regional Blood g/dL Medical Center (Lab): [address] [place] [address] Low Hematocrit 27.8 % 34.0-5 Final [place] 0.0 % [facility] (Lab): [address] [place] [address] 03/27/2019 Upc Results Final [facility] (Lab): [address] [place] [address] 03/27/2019 Upc Results Final [facility] (Lab): [address] [place] [address] 03/27/2019 Upc Results Final [facility] (Lab): [address] [place] [address] 03/27/2019 Upc Results Final [facility] (Lab): [address] [place] [address] 03/27/2019 Upc Results Final [facility] (Lab): [address] [place] [address] 03/27/2019 Up Results Final [facility] (Lab): [address] [place] [address] 03/27/2019 Up Results Final [facility] (Lab): [address] [place] [address] 03/27/2019 Up Results Final [facility] (Lab): [address] [place] [address] 03/26/2019 CMP, Serum or Normal Glucose 101 mg/dL 74-106 Final [place] Plasma mg/dL [facility] (Lab): [address] [place] [address] Normal Blood Urea 10 mg/dL 6-20 Final [place] Nitrogen mg/dL [facility] (Lab): [address] [place] [address] Low Osmolality 271 280-30 Final [place] Calculated,seru mOsm/kg 0 Regional m mOsm/k [facility] g Center (Lab): [address] [place] [address] Normal Creatinine 0.5 mg/dL 0.50-0 Final [place] .90 Regional mg/dL Medical Center (Lab): [address] [place] [address] Normal Glomerular >60.00 Final [place] Filtration Rate [facility] (Lab): [address] [place] [address] Normal BUN/creatinine 20.0 12-20 Final [place] Ratio [facility] (Lab): [address] [place] [address] Normal Sodium Level 136 135-14 Final [place] mmol/L 5 Regional mmol/L [facility] Center (Lab): [address] [place] [address] CRITICAL Potassium 2.5 3.5-5. Final [place] LOW Level mmol/L 2 Regional mmol/L [facility] (Lab): [address] [place] [address] Normal Chloride Level 100 98-108 Final [place] mmol/L mmol/L [facility] (Lab): [address] [place] [address] Low Co2 19 mmol/L 21-32 Final [place] mmol/L [facility] (Lab): [address] [place] [address] Normal Anion Gap 19.5 12-20 Final [place] mEq/L mEq/L [facility] (Lab): [address] [place] [address] Normal Calcium Level 8.8 mg/dL 8.6-10 Final [place] .0 Regional mg/dL [facility] Center (Lab): [address] [place] [address] Normal Total Protein 7.2 g/dL 6.6-8. Final [place] 7 g/dL [facility] (Lab): [address] [place] [address] Normal Albumin 4.0 g/dL 3.5-5. Final [place] 2 g/dL [facility] (Lab): [address] [place] [address] Normal Globulin 3.2 gm/dL [facility] [place] (Lab): [address] [place] [address] Normal A/g Ratio 1.3 >1.0 Final [facility] (Lab): [address] [place] [address] Normal Bilirubin,tota 0.3 mg/dL 0.0-1. Final [place] l 2 Regional mg/dL [facility] (Lab): [address] [place] [address] Normal AST/SGOT 28 U/L 15-32 Final [place] U/L [facility] (Lab): [address] [place] [address] Normal ALT/SGPT 15 U/L 0-33 Final [place] U/L [facility] (Lab): [address] [place] [address] High Alkaline 282 U/L 35-105 Final [place] Phosphatase, U/L [facility] (Lab): [address] [place] [address] 03/26/2019 CK (Creatine Normal Creatine 168 U/L 20-180 Final [place] Kinase), Kinase U/L [facility] Total, Serum [facility] (Lab): [address] [place] [address] 03/26/2019 Pro BNP (Pro High N-term Pro 350 pg/mL 0-125 Final [place] B-type Natriuretic pg/mL [facility] Natriuretic Peptide Medical Peptide), Center Serum or (Lab): [address] [place] [address] 03/26/2019 Troponin I, Normal Cardiac <0.30 0.0-0. Final [place] Cardiac, Troponin I NG/mL 5 Regional Quant, Blood NG/mL Medical Center (Lab): [address] [place] [address] 03/26/2019 CK-mb, Blood Normal Mass 3.1 NG/mL 0.0-3. Final [place] Creatinine 6 Regional Kinase-mb NG/mL [facility] (Lab): [address] [place] [address] 03/26/2019 Urinalysis, Normal Color, Urine light Final [place] Complete yellow [facility] (Lab): [address] [place] [address] Normal Appearance, clear clear Final [place] Urine [facility] (Lab): [address] [place] [address] Normal Urine Glucose negative negati Final [place] ve [facility] (Lab): [address] [place] [address] Normal Bilirubin, negative negati Final [place] Urine ve [facility] (Lab): [address] [place] [address] Normal Ketone, Urine negative negati Final [place] ve [facility] (Lab): [address] [place] [address] Normal Specific <=1.005 1.003- Final [place] Serafina,urine 1.030 [facility] (Lab): [address] [place] [address] Normal Blood Urine negative negati Final [place] ve [facility] (Lab): [address] [place] [address] Normal pH,urine 7.000 5-9 Final [place] [facility] (Lab): [address] [place] [address] Normal Protein Urine negative negati Final [place] (UA) ve [facility] (Lab): [address] [place] [address] Normal Urobilinogen, 0.2 0.2-1. Final [place] Urine E.U./dL 0 Regional E.U./d [facility] (Lab): [address] [place] [address] Normal Nitrate, Urine negative negati Final [place] ve [facility] (Lab): [address] [place] [address] Normal Urine negative negati Final [place] Leukocyte [facility] ([facility]): [address] [place] [address] Normal RBC, Urine =0-3 0-5 Final [place] /[hpf] /[hpf] [facility] (Lab): [address] [place] [address] Normal WBC, Urine =0-2 0-5 Final [place] /[hpf] /[hpf] [facility] [place] (Lab): [address] [place] [address] Normal Epithelial =0-5 0-5 Final [place] Cell /[hpf] /[hpf] [facility] (Lab): [address] [place] [address] Normal Bacteria, none none Final [place] Urine detected detect Regional /[hpf] /[hpf] [facility] Center (Lab): [address] [place] [address] Normal Urine Culture no Final [place] Added? [facility] (Lab): [address] [place] [address] 03/26/2019 Phosphorus, Low Phosphorous 1.5 mg/dL 2.5-4. Final [place] Serum or Level 5 Regional Plasma mg/dL Medical Center (Lab): [address] [place] [address] 03/26/2019 Magnesium, Normal Magnesium 1.8 mg/dL 1.6-2. Final [place] QN, Level 6 Regional Unspecified mg/dL Medical Specimen [facility] (Lab): [address] [place] [address] 03/26/2019 Type + Rh Bld 3+ Final [place] Screen, Blood [facility] (Lab): [address] [place] [address] ABO + Rh Pnl O Final [place] Bld positive [facility] (Lab): [address] [place] [address] 03/26/2019 Type + Cross, Type + Xm Pnl unit Final [place] Blood Bld number: [facility] [id number] [place] [id number] Center (Lab): [address] [place] [address] 03/26/2019 Upc Results Final [facility] (Lab): [address] [place] [address] 03/26/2019 Upc Results Final [facility] (Lab): [address] [place] [address] 03/26/2019 Upc Results Final [facility] (Lab): [address] [place] [address] 03/26/2019 Upc Results Final [facility] (Lab): [address] [place] [address] 03/26/2019 Upc Results Final [facility] (Lab): [address] [place] [address] 03/26/2019 Upc Results Final [facility] (Lab): [address] [place] [address] 03/26/2019 Upc Results Final [facility] (Lab): [address] [place] [address] 03/26/2019 Upc Results Final [facility] (Lab): [address] [place] [address] 03/26/2019 Upc Results Final [facility] (Lab): [address] [place] [address] 03/26/2019 Upc Results Final [facility] (Lab): [address] [place] [address] 03/26/2019 Upc Results Final [facility] (Lab): [address] [place] [address] 03/26/2019 Upc Results Final [facility] (Lab): [address] [place] [address] Allergies Code Code System Name Reaction Severity Status Onset NKDA Problems No Known Problems Procedures Date Name Performed by 10/21/2012 Back Surgery Information not available Stomach Surgery Procedure Information not available Cholecystectomy Information not available Vaccine List Vaccine Type influenza, injectable, quadrivalent 04/06/2019 pneumococcal conjugate PCV 13 04/06/2019 Social History Tobacco Smoking Status Never Smoker Past Encounters 04/12/2019 Iron Deficiency Anemia Tex Yip MD: [address] [facility] [address], [place] [address], Ph. 03/19/2019 Tinea Corporis Beverly Smith, STEEPING PRESS OPERATOR: [address] [facility] [address], [place] [address], Ph. History of Present Illness Note: s/p hospitalization for occult gi bleeding, had egd, balloon enteroscopy, colonoscopy all in march, no obvious source of bleeding thought maybe could have an ulcer around the gastric bypass. [facility] Was recommended to see Print Press Operator. Latest Hgb 11.She received 3 days of IV iron infusions. Surgery recommended for her to see systems integration manager as soon as possible.<div>
</div><div>Patient discharged on 04/09/2019.Date interactive contactwas made was 04/09/2019.</ div><div>Patient was discharged to home.</div><div>Patient will be scheduled to see PCP on 04/12/2019. Patient will be scheduled to see oncology hematology.</div><div>
</div><div>< br></div> Review of Systems General Adult ROS Reported By: Patient Constitutional: Constitutional: no fever, no night sweats, no significant weight gain, no significant weight loss Eyes: Eyes: no dry eyes, no irritation ENMT: Ears: no difficulty hearing. Nose: no frequent nosebleeds. Mouth/Throat: no sore throat Cardiovascular: Cardiovascular: no chest pain, no arm pain on exertion, no shortness of breath when walking, no shortness of breath when lying down, no palpitations Respiratory: Respiratory: no cough, no wheezing, no shortness of breath, no coughing up blood Gastrointestinal: Gastrointestinal: no abdominal pain, no vomiting, normal appetite, no diarrhea, not vomiting blood Genitourinary: Genitourinary: no incontinence, no difficulty urinating, no hematuria Musculoskeletal: Musculoskeletal: no muscle aches, no muscle weakness, no arthralgias/joint pain, no back pain Integumentary: Skin: no abnormal mole, no jaundice, no rashes Neurologic: Neurologic: no loss of consciousness, no weakness, no numbness, no seizures, no dizziness Psychiatric: Psych: no depression, no sleep disturbances Endocrine: Endocrine: no fatigue Hematologic/Lymphatic: Hematologic/Lymphatic no swollen glands, no bruising Allergic/Immunologic: Allergy/Immunologic: no runny nose, no sinus pressure, no itching, no hives, no frequent sneezing Physical Exam General Adult Exam - Female Reported By: Patient Constitutional: General Appearance: healthy-appearing, well-nourished, well-developed. Level of Distress: NAD. Ambulation: ambulating normally Psychiatric: Insight: good judgement. Mental Status: active and alert, normal mood, normal affect. Orientation: to time, to place, to person. Memory: recent memory normal Head: Head: normocephalic Eyes: Pupils: PERRLA. EOM: EOMI. Sclerae: non-icteric ENMT: Oropharynx: moist mucous membranes Neck: Neck: supple, FROM. Thyroid: no enlargement, non-tender, no nodules Lungs: Respiratory effort: no dyspnea. Auscultation: breath sounds normal, good air movement Cardiovascular: Heart Auscultation: RRR, normal S1, normal S2. Neck vessels: no carotid bruits. Pulses including femoral / pedal: normal throughout Abdomen: Bowel Sounds: normal. Inspection and Palpation: soft, non-distended, no tenderness, no guarding Musculoskeletal:: Motor Strength and Tone: normal motor strength, normal tone. Joints, Bones, and Muscles: normal movement of all extremities. Extremities: no cyanosis, no edema, no varicosities Neurologic: Gait and Station: normal gait, normal station. Cranial Nerves: grossly intact. Reflexes: DTRs 2+ bilaterally throughout Skin: Inspection and palpation: no rash, no lesions
--- OUTSIDE RECORDS SUMMARY | 2019-05-21 10:24 | XMS REPORT | Encounter Summary ---
:1965 Author Care Team Providers Name Role Phone Tex Yip MD Primary Care Provider [phone] Jie David MD Crack Off Person [phone] Evan Maradiaga MD Pain Management [phone] Reason for Visit New Patient Instructions 1. Gastrointestinal hemorrhage gastrointestinal bleeding: care instructions Discussion Note: None recorded. Plan of Care Reminders Provider Appointments None recorded. Lab None recorded. Referral None recorded. Procedures None recorded. Surgeries None recorded. Imaging None recorded. Medications Name Start Date cyclobenzaprine 10 mg tablet Take 1 tablet 3 times a day by oral route as needed for 30 days. ergocalciferol (vitamin D2) 1,250 mcg (50,000 unit) capsule estradiol 0.01% (0.1 mg/gram) vaginal cream Insert 1 g 3 times a week by vaginal route for 30 days. fluticasone propionate 50 mcg/actuation nasal spray,suspension INHALE 1 SPRAY IN NOSTRIL(S) TWICE A DAY hydrocodone 10 mg-acetaminophen 325 mg tablet levothyroxine 200 mcg tablet Take 1 tablet every day by oral route for 90 days. pantoprazole 40 mg tablet,delayed release TAKE 1 TABLET BY MOUTH EVERY DAY Premarin 0.625 mg/gram vaginal cream Insert 0.5 applicatorsful every day by vaginal route for 30 days. sertraline 100 mg tablet TAKE 1 AND 1/2 TABLETS (150 MG ) BY MOUTH EVERY DAY FOR 90 DAYS. sucralfate 1 gram tablet Take 1 tablet 4 times a day by oral route for 30 days. triamcinolone acetonide 0.5 % topical ointment zolpidem ER 12.5 mg tablet,extended release,multiphase Take 1 tablet every day by oral route for 90 days. Medications Administered None recorded. Vitals Height Weight BMI Blood Pressure 5 ft 4 in 144 lbs 24.7 kg/m2 121/76 mm[Hg] Results Lab Results Date Name Specimen Result Interpretation Description Value Range Status Address 04/10/2019 [facility] Blood Normal [facility] Blood sent to [facility] [place] Collection Collection [facility] (Lab): [address] [place] [address] 04/04/2019 CBC W/ Auto Normal White Blood 7.1 K/uL 4.0-11 [facility] [place] Diff Count .5 [facility] (Lab): [address] [place] [address] Red Blood 3.09 M/uL 3.80-5 [facility] [place] Count .20 [facility] (Lab): [address] [place] [address] Hemoglobin 8.3 g/dL 10.5-1 [facility] [place] 5.7 [facility] g/dL [facility] (Lab): [address] [place] [address] Hematocrit 27.8 % 34.0-5 [facility] [place] 0.0 % [facility] (Lab): [address] [place] [address] Normal Mean 90.0 fL 86-100 [facility] [place] Corpuscular fL [facility] (Lab): [address] [place] [address] Normal Mean 26.9 pg 26.2-3 [facility] [place] Corpuscular 3.4 pg [facility] Hemoglobin [facility] (Lab): [address] [place] [address] Mean 29.9 g/dL 30-34 [facility] [place] Corpuscular HGB g/dL [facility] Conc [facility] (Lab): [address] [place] [address] Red Cell 25.7 % 12.0-1 [facility] [place] Distribution 5.5 % [facility] Width [facility] (Lab): [address] [place] [address] Low Platelet Count 141 K/uL 165-45 [facility] [place] 0 K/uL [facility] (Lab): [address] [place] [address] Normal Ipf# 13.4 [place] [facility] (Lab): [address] [place] [address] Ipf% 9.5 % 0-8 % [facility] [place] [facility] (Lab): [address] [place] [address] Normal Mean Platelet 11.6 fL 9.4-12 Final [place] Volume .6 fL [facility] (Lab): [address] [place] [address] Normal Neutrophils % 53.1 % 44.4-8 Corrected [place] 0.1 % [facility] (Lab): [address] [place] [address] High Ig% 1.1 % 0.0-0. Corrected [place] 4 % [facility] (Lab): [address] [place] [address] Normal Lymphocyte% 31.2 % 10.0-5 [facility] [place] 0.0 % [facility] (Lab): [address] [place] [address] Normal Otero % 9.5 % 3.6-12 [facility] [place] .0 % [facility] (Lab): [address] [place] [address] Normal Eos % 4.4 % 0.0-5. [facility] [place] 4 % [facility] (Lab): [address] [place] [address] Normal Basophil % 0.7 % 0.1-1. [facility] [place] 2 % [facility] (Lab): [address] [place] [address] Normal Absolute 3.75 K/uL 1.56-6 [facility] [place] Neutrophil .13 [facility] Count K/ [facility] (Lab): [address] [place] [address] High Ig# 0.1 K/uL 0.0-0. Corrected [place] 03 [facility] (Lab): [address] [place] [address] Normal Lymph # 2.2 K/uL 1.18-3 Corrected [place] .74 [facility] (Lab): [address] [place] [address] Normal Otero # 0.67 K/uL 0.24-0 [facility] [place] .86 [facility] (Lab): [address] [place] [address] Normal Eos # 0.31 K/uL 0.04-0 [facility] [place] .36 [facility] (Lab): [address] [place] [address] Normal Basophil # 0.05 K/uL 0.01-0 Corrected [place] .08 [facility] (Lab): [address] [place] [address] Normal Nrbc% 0 /100 0-0.2 [facility] [place] WBC /100 [facility] WBC [facility] (Lab): [address] [place] [address] Normal Nrbc# 0 K/uL 0 K/uL [place] [facility] (Lab): [address] [place] [address] 04/04/2019 BMP, Serum or Normal Glucose 86 mg/dL 74-106 [facility] [place] Plasma mg/dL [facility] (Lab): [address] [place] [address] Normal Blood Urea 13 mg/dL 6-20 [facility] [place] Nitrogen mg/dL [facility] (Lab): [address] [place] [address] Low Osmolality 277 280-30 [facility] [place] Calculated,seru mOsm/kg 0 [facility] m mOsm/k [facility] (Lab): [address] [place] [address] Normal Creatinine 0.6 mg/dL 0.50-0 [facility] [place] .90 [facility] mg[facility]dL [facility] (Lab): [address] [place] [address] Normal Glomerular >60.00 [facility] [place] Filtration Rate [facility] (Lab): [address] [place] [address] High BUN/creatinine 21.7 12-20 [facility] [place] Ratio [facility] (Lab): [address] [place] [address] Normal Sodium Level 139 135-14 [facility] [place] mmol/L 5 [facility]L [facility] (Lab): [address] [place] [address] Normal Potassium 4.2 3.5-5. [facility] [place] Level mmol/L 2 [facility] mmol[facility]L [facility] (Lab): [address] [place] [address] Normal Chloride Level 104 98-108 [facility] [place] mmol/L mmol/L [facility] (Lab): [address] [place] [address] Normal Co2 27 mmol/L 21-32 [facility] [place] mmol/L [facility] (Lab): [address] [place] [address] Normal Anion Gap 12.2 12-20 [facility] [place] mEq/L mEq/L [facility] (Lab): [address] [place] [address] Low Calcium Level 8.4 mg/dL 8.6-10 [facility] [place] .0 [facility] mg[facility]dL [facility] (Lab): [address] [place] [address] 04/03/2019 Hemoglobin + Normal Hemoglobin 8.5 g/dL 10.5-1 Corrected [place] Hematocrit, 5.7 [facility] Blood g/dL [facility] (Lab): [address] [place] [address] Low Hematocrit 27.1 % 34.0-5 Final [place] 0.0 % [facility] (Lab): [address] [place] [address] 04/02/2019 Hemoglobin + Normal Hemoglobin 6.9 g/dL 10.5-1 [facility] [place] Hematocrit, 5.7 [facility] Blood g/dL [facility] (Lab): [address] [place] [address] Normal Hematocrit 23.8 % 34.0-5 Final [place] 0.0 % [facility] (Lab): [address] [place] [address] 04/02/2019 Hemoglobin + CRITICAL Hemoglobin 7.4 g/dL 10.5-1 [facility] [place] Hematocrit, LOW 5.7 [facility] Blood g/dL [facility] (Lab): [address] [place] [address] Low Hematocrit 25.6 % 34.0-5 [facility] [place] 0.0 % [facility] (Lab): [address] [place] [address] 04/02/2019 Hemoglobin + CRITICAL Hemoglobin 6.9 g/dL 10.5-1 [facility] [place] Hematocrit, LOW 5.7 [facility] Blood g/dL [facility] (Lab): [address] [place] [address] Low Hematocrit 23.8 % 34.0-5 [facility] [place] 0.0 % [facility] (Lab): [address] [place] [address] 04/02/2019 Type + Rh Bld 4+ Final [place] Screen, Blood [facility] (Lab): [address] [place] [address] ABO + Rh Pnl O [place] Bld positive [facility] (Lab): [address] [place] [address] 04/02/2019 Type + Cross, Type + Xm Pnl [place] Blood Bld [facility] (Lab): [address] [place] [address] 04/02/2019 Upc Results Final [facility] (Lab): [address] [place] [address] 04/02/2019 Upc Results Final [facility] (Lab): [address] [place] [address] 04/02/2019 Upc Results Final [facility] (Lab): [address] [place] [address] 04/02/2019 Upc Results Final [facility] (Lab): [address] [place] [address] 04/02/2019 Upc Results Final [facility] (Lab): [address] [place] [address] 04/02/2019 Upc Results Final [facility] (Lab): [address] [place] [address] 04/02/2019 Upc Results Final [facility] (Lab): [address] [place] [address] 04/02/2019 Upc Results Final [facility] (Lab): [address] [place] [address] 04/02/2019 Upc Results Final [facility] (Lab): [address] [place] [address] 04/01/2019 BMP, Serum or Normal Glucose 91 mg/dL 74-106 [facility] [place] Plasma mg/dL [facility] (Lab): [address] [place] [address] Normal Blood Urea 19 mg/dL 6-20 [facility] [place] Nitrogen mg/dL [facility] (Lab): [address] [place] [address] Low Osmolality 276 280-30 [facility] [place] Calculated,seru mOsm/kg 0 [facility] m mOsm/k [facility] (Lab): [address] [place] [address] Low Creatinine 0.4 mg/dL 0.50-0 [facility] [place] .90 [facility] mg/dL [facility] (Lab): [address] [place] [address] Normal Glomerular >60.00 [facility] [place] Filtration Rate [facility] (Lab): [address] [place] [address] High BUN/creatinine 47.5 12-20 [facility] [place] Ratio [facility] (Lab): [address] [place] [address] Normal Sodium Level 137 135-14 [facility] [place] mmol/L 5 [facility] mmol/L [facility] (Lab): [address] [place] [address] Normal Potassium 4.0 3.5-5. [facility] [place] Level mmol/L 2 [facility] mmol/L [facility] (Lab): [address] [place] [address] Normal Chloride Level 103 98-108 [facility] [place] mmol/L mmol/L [facility] (Lab): [address] [place] [address] Normal Co2 29 mmol/L 21-32 [facility] [place] mmol/L [facility] (Lab): [address] [place] [address] Low Anion Gap 9.0 mEq/L 12-20 [facility] [place] mEq/L [facility] (Lab): [address] [place] [address] Low Calcium Level 7.9 mg/dL 8.6-10 [facility] [place] .0 [facility] mg[facility]dL [facility] (Lab): [address] [place] [address] 03/31/2019 Cbc Normal White Blood 7.4 K/uL 4.0-11 [facility] [place] Count .5 [facility] (Lab): [address] [place] [address] Low Red Blood 3.65 M/uL 3.80-5 [facility] [place] Count .20 [facility] (Lab): [address] [place] [address] Low Hemoglobin 8.9 g/dL 10.5-1 [place] 5.7 [facility] g/dL [facility] (Lab): [address] [place] [address] Low Hematocrit 30.1 % 34.0-5 [facility] [place] 0.0 % [facility] (Lab): [address] [place] [address] Mean 82.5 fL 86-100 [facility] [place] Corpuscular fL [facility] (Lab): [address] [place] [address] Mean 24.4 pg 26.2-3 [facility] [place] Corpuscular 3.4 pg [facility] Hemoglobin [facility] (Lab): [address] [place] [address] Mean 29.6 g/dL 30-34 [facility] [place] Corpuscular HGB g/dL [facility] (Lab): [address] [place] [address] Red Cell 25.2 % 12.0-1 [facility] [place] Distribution 5.5 % [facility] Width [facility] (Lab): [address] [place] [address] Low Platelet Count 133 K/uL 165-45 [facility] [place] 0 K/uL [facility] (Lab): [address] [place] [address] Normal Mean Platelet 10.2 fL 9.4-12 [facility] [place] Volume .6 fL [facility] (Lab): [address] [place] [address] 03/30/2019 CBC W/ Auto Normal White Blood 6.4 K/uL 4.0-11 [facility] [place] Diff Count .5 [facility] (Lab): [address] [place] [address] Red Blood 3.61 M/uL 3.80-5 [facility] [place] Count .20 [facility] (Lab): [address] [place] [address] Hemoglobin 8.6 g/dL 10.5-1 [facility] [place] 5.7 [facility] g/dL [facility] (Lab): [address] [place] [address] Hematocrit 29.3 % 34.0-5 Final [place] 0.0 % [facility] (Lab): [address] [place] [address] Mean 81.2 fL 86-100 Final [place] Corpuscular fL [facility] (Lab): [address] [place] [address] Low Mean 23.8 pg 26.2-3 [facility] [place] Corpuscular 3.4 pg [facility] Hemoglobin [facility] (Lab): [address] [place] [address] Mean 29.4 g/dL 30-34 [facility] [place] Corpuscular HGB g/dL [facility] (Lab): [address] [place] [address] High Red Cell 23.8 % 12.0-1 Final [place] Distribution 5.5 % [facility] (Lab): [address] [place] [address] Low Platelet Count 144 K/uL 165-45 [facility] [place] 0 K/uL [facility] (Lab): [address] [place] [address] Normal Mean Platelet 10.2 fL 9.4-12 Final [place] Volume .6 fL [facility] (Lab): [address] [place] [address] Normal Neutrophils % 58.3 % 44.4-8 Corrected [place] 0.1 % [facility] (Lab): [address] [place] [address] Normal Ig% 0.3 % 0.0-0. Corrected [place] 4 % [facility] (Lab): [address] [place] [address] Normal Lymphocyte% 27.6 % 10.0-5 Final [place] 0.0 % [facility] (Lab): [address] [place] [address] Normal Otero % 9.6 % 3.6-12 Final [place] .0 % [facility] (Lab): [address] [place] [address] Normal Eos % 3.7 % 0.0-5. Final [place] 4 % [facility] (Lab): [address] [place] [address] Normal Basophil % 0.5 % 0.1-1. Final [place] 2 % [facility] (Lab): [address] [place] [address] Normal Absolute 3.75 K/uL 1.56-6 [facility] [place] Neutrophil .13 [facility] K/ [facility] (Lab): [address] [place] [address] Normal Ig# 0.0 K/uL 0.0-0. Corrected [place] 03 [facility] (Lab): [address] [place] [address] Normal Lymph # 1.8 K/uL 1.18-3 Corrected [place] .74 [facility] (Lab): [address] [place] [address] Normal Otero # 0.62 K/uL 0.24-0 Final [place] .86 [facility] (Lab): [address] [place] [address] Normal Eos # 0.24 K/uL 0.04-0 [facility] [place] .36 [facility] (Lab): [address] [place] [address] Normal Basophil # 0.03 K/uL 0.01-0 Corrected [place] .08 [facility] [address] [place] [address] Normal Nrbc% 0 /100 0-0.2 [facility] [place] WBC /100 [facility] WBC [facility] (Lab): [address] [place] [address] Normal Nrbc# 0 K/uL 0 K/uL Final [facility] (Lab): [address] [place] [address] 03/30/2019 Differential Normal Neutrophils [facility] Panel, Blood [facility] (Lab): [address] [place] [address] Normal Band [facility] (Lab): [address] [place] [address] Normal Lymphocyte [facility] (Lab): [address] [place] [address] Normal Atypical Lymph [facility] (Lab): [address] [place] [address] Normal Monocyte [facility] (Lab): [address] [place] [address] Normal Eosinophil [facility] (Lab): [address] [place] [address] Normal Basophil [facility] (Lab): [address] [place] [address] Normal Blasts [facility] (Lab): [address] [place] [address] Normal Platelet [facility] Estimate [facility] (Lab): [address] [place] [address] Normal Platelet [facility] (Lab): [address] [place] [address] Normal Hypochromasia [facility] (Lab): [address] [place] [address] Normal Anisocytosis [facility] (Lab): [address] [place] [address] Normal Microcytosis [facility] (Lab): [address] [place] [address] Normal Macrocytosis [facility] (Lab): [address] [place] [address] [facility] (Lab): [address] [place] [address] Normal Dohle Bodies [facility] (Lab): [address] [place] [address] Normal Hypersegmented [facility] (Lab): [address] [place] [address] Normal Rouleau [facility] (Lab): [address] [place] [address] Normal Toxic Incomplete [place] Vacuolation [facility] (Lab): [address] [place] [address] Normal Differential Incomplete [place] comment-P [facility] (Lab): [address] [place] [address] 03/30/2019 BMP, Serum or Normal Glucose 97 mg/dL 74-106 Final [place] Plasma mg/dL [facility] (Lab): [address] [place] [address] Normal Blood Urea 12 mg/dL 6-20 Final [place] Nitrogen mg/dL [facility] (Lab): [address] [place] [address] Normal Osmolality 287 280-30 Final [place] Calculated,seru mOsm/kg 0 [facility] m mOsm/k [facility] (Lab): [address] [place] [address] Normal Creatinine 0.7 mg/dL 0.50-0 Final [place] .90 [facility] mg/dL [facility] (Lab): [address] [place] [address] Normal Glomerular >60.00 Final [place] Filtration Rate [facility] (Lab): [address] [place] [address] Normal BUN/creatinine 17.1 12-20 Final [place] Ratio [facility] (Lab): [address] [place] [address] Normal Sodium Level 144 135-14 Final [place] mmol/L 5 [facility] mmol/L [facility] (Lab): [address] [place] [address] Normal Potassium 3.5 3.5-5. Final [place] Level mmol/L 2 [facility] mmol/L [facility] (Lab): [address] [place] [address] High Chloride Level 111 98-108 Final [place] mmol/L mmol/L [facility] (Lab): [address] [place] [address] Normal Co2 23 mmol/L 21-32 Final [place] mmol/L [facility] (Lab): [address] [place] [address] Normal Anion Gap 13.5 12-20 Final [place] mEq/L mEq/L [facility] (Lab): [address] [place] [address] Low Calcium Level 7.7 mg/dL 8.6-10 Final [place] .0 [facility] mg/dL [facility] (Lab): [address] [place] [address] 03/29/2019 Hemoglobin + Low Hemoglobin 8.0 g/dL 10.5-1 Final [place] Hematocrit, 5.7 [facility] Blood g/dL [facility] (Lab): [address] [place] [address] Low Hematocrit 27.3 % 34.0-5 Final [place] 0.0 % [facility] (Lab): [address] [place] [address] 03/29/2019 BMP, Serum or Normal Glucose 99 mg/dL 74-106 Final [place] Plasma mg/dL [facility] (Lab): [address] [place] [address] Normal Blood Urea 12 mg/dL 6-20 Final [place] Nitrogen mg/dL [facility] (Lab): [address] [place] [address] Low Osmolality 279 280-30 Final [place] Calculated,seru mOsm/kg 0 [facility] m mOsm/k [facility] (Lab): [address] [place] [address] Low Creatinine 0.4 mg/dL 0.50-0 Final [place] .90 [facility] mg/dL [facility] (Lab): [address] [place] [address] Normal Glomerular >60.00 Final [place] Filtration Rate [facility] (Lab): [address] [place] [address] High BUN/creatinine 30.0 12-20 Final [place] Ratio [facility] (Lab): [address] [place] [address] Normal Sodium Level 140 135-14 Final [place] mmol/L 5 [facility] mmol/L [facility] (Lab): [address] [place] [address] Low Potassium 3.3 3.5-5. Final [place] Level mmol/L 2 [facility] mmol/L [facility] (Lab): [address] [place] [address] Normal Chloride Level 107 98-108 Final [place] mmol/L mmol/L [facility] (Lab): [address] [place] [address] Normal Co2 27 mmol/L 21-32 Final [place] mmol/L [facility] (Lab): [address] [place] [address] Low Anion Gap 9.3 mEq/L 12-20 Final [place] mEq/L [facility] (Lab): [address] [place] [address] Low Calcium Level 7.9 mg/dL 8.6-10 Final [place] .0 [facility] mg/dL [facility] (Lab): [address] [place] [address] 03/29/2019 Hemoglobin + Low Hemoglobin 8.1 g/dL 10.5-1 Final [place] Hematocrit, 5.7 [facility] Blood g/dL [facility] (Lab): [address] [place] [address] Low Hematocrit 27.1 % 34.0-5 Final [place] 0.0 % [facility] (Lab): [address] [place] [address] 03/29/2019 Hemoglobin + Low Hemoglobin 9.5 g/dL 10.5-1 Final [place] Hematocrit, 5.7 [facility] Blood g/dL [facility] (Lab): [address] [place] [address] Low Hematocrit 30.7 % 34.0-5 Final [place] 0.0 % [facility] (Lab): [address] [place] [address] 03/28/2019 Hemoglobin + CRITICAL Hemoglobin 7.7 g/dL 10.5-1 Final [place] Hematocrit, LOW 5.7 [facility] Blood g/dL [facility] (Lab): [address] [place] [address] Low Hematocrit 25.2 % 34.0-5 Final [place] 0.0 % [facility] (Lab): [address] [place] [address] 03/28/2019 CBC W/ Auto Normal White Blood 4.3 K/uL 4.0-11 Final [place] Diff Count .5 [facility] K/uL [facility] (Lab): [address] [place] [address] Low Red Blood 3.62 M/uL 3.80-5 Final [place] Count .20 [facility] M/ [facility] (Lab): [address] [place] [address] Low Hemoglobin 8.3 g/dL 10.5-1 Final [place] 5.7 [facility] g/dL [facility] (Lab): [address] [place] [address] Low Hematocrit 27.7 % 34.0-5 Final [place] 0.0 % [facility] (Lab): [address] [place] [address] Low Mean 76.5 fL 86-100 Final [place] Corpuscular fL [facility] (Lab): [address] [place] [address] Low Mean 22.9 pg 26.2-3 Final [place] Corpuscular 3.4 pg [facility] Hemoglobin [facility] (Lab): [address] [place] [address] Normal Mean 30.0 g/dL 30-34 Final [place] Corpuscular HGB g/dL [facility] Conc [facility] (Lab): [address] [place] [address] High Red Cell 22.5 % 12.0-1 Final [place] Distribution 5.5 % [facility] (Lab): [address] [place] [address] Normal Platelet Count 175 K/uL 165-45 Final [place] 0 K/uL [facility] (Lab): [address] [place] [address] Normal Mean Platelet 10.0 fL 9.4-12 Final [place] Volume .6 fL [facility] (Lab): [address] [place] [address] Normal Neutrophils % 47.8 % 44.4-8 Corrected [place] 0.1 % [facility] (Lab): [address] [place] [address] Normal Ig% 0.2 % 0.0-0. Corrected [place] 4 % [facility] (Lab): [address] [place] [address] Normal Lymphocyte% 35.3 % 10.0-5 Final [place] 0.0 % [facility] (Lab): [address] [place] [address] Normal Otero % 9.9 % 3.6-12 Final [place] .0 % [facility] (Lab): [address] [place] [address] High Eos % 6.1 % 0.0-5. Final [place] 4 % [facility] (Lab): [address] [place] [address] Normal Basophil % 0.7 % 0.1-1. Final [place] 2 % [facility] (Lab): [address] [place] [address] Normal Absolute 2.03 K/uL 1.56-6 Final [place] Neutrophil .13 [facility] (Lab): [address] [place] [address] Normal Ig# 0.0 K/uL 0.0-0. Corrected [place] 03 [facility] (Lab): [address] [place] [address] Normal Lymph # 1.5 K/uL 1.18-3 Corrected [place] .74 [facility] (Lab): [address] [place] [address] Normal Otero # 0.42 K/uL 0.24-0 Final [place] .86 [facility] (Lab): [address] [place] [address] Normal Eos # 0.26 K/uL 0.04-0 Final [place] .36 [facility] (Lab): [address] [place] [address] Normal Basophil # 0.03 K/uL 0.01-0 Corrected [place] .08 [facility] (Lab): [address] [place] [address] High Nrbc% 1 /100 0-0.2 Final [place] WBC /100 [facility] (Lab): [address] [place] [address] Normal Nrbc# 0 K/uL 0 K/uL Final [facility] (Lab): [address] [place] [address] 03/28/2019 Differential Normal Neutrophils [facility] Panel Blood [facility] (Lab): [address] [place] [address] Normal Band [facility] (Lab): [address] [place] [address] Normal Lymphocyte [facility] (Lab): [address] [place] [address] Normal Atypical Lymph [facility] (Lab): [address] [place] [address] Normal Monocyte [facility] (Lab): [address] [place] [address] Normal Eosinophil [facility] (Lab): [address] [place] [address] Normal Basophil [facility] (Lab): [address] [place] [address] Normal Blasts [facility] (Lab): [address] [place] [address] Normal Platelet [facility] Estimate [facility] (Lab): [address] [place] [address] Normal Platelet [facility] Morphology [facility] (Lab): [address] [place] [address] Normal Hypochromasia [facility] (Lab): [address] [place] [address] Normal Anisocytosis [facility] (Lab): [address] [place] [address] Normal Microcytosis [facility] (Lab): [address] [place] [address] Normal Macrocytosis [facility] (Lab): [address] [place] [address] Normal Toxic [facility] Granulation [facility] (Lab): [address] [place] [address] Normal Hypersegmented [facility] Polys [facility] (Lab): [address] [place] [address] Normal Rouleau [facility] (Lab): [address] [place] [address] Normal Toxic [facility] Vacuolation [facility] (Lab): [address] [place] [address] 03/28/2019 BMP, Serum or Normal Glucose 81 mg/dL 74-106 Final [place] Plasma mg/dL [facility] (Lab): [address] [place] [address] Normal Blood Urea 8 mg/dL 6-20 Final [place] Nitrogen mg/dL [facility] (Lab): [address] [place] [address] Low Osmolality 277 280-30 Final [place] Calculated,seru mOsm/kg 0 Regional m mOsm/k Medical g Center (Lab): [address] [place] [address] Low Creatinine 0.4 mg/dL 0.50-0 Final [place] .90 Regional mg/dL [facility] Center (Lab): [address] [place] [address] Normal Glomerular >60.00 Final [place] Filtration Rate [facility] (Lab): [address] [place] [address] Normal BUN/creatinine 20.0 12-20 Final [place] Ratio [facility] (Lab): [address] [place] [address] Normal Sodium Level 140 135-14 Final [place] mmol/L 5 Regional mmol/L [facility] Center (Lab): [address] [place] [address] Normal Potassium 3.5 3.5-5. Final [place] Level mmol/L 2 Regional mmol/L [facility] (Lab): [address] [place] [address] Normal Chloride Level 108 98-108 Final [place] mmol/L mmol/L [facility] (Lab): [address] [place] [address] Normal Co2 24 mmol/L 21-32 Final [place] mmol/L [facility] (Lab): [address] [place] [address] Low Anion Gap 11.5 12-20 Final [place] mEq/L mEq/L [facility] (Lab): [address] [place] [address] Low Calcium Level 7.9 mg/dL 8.6-10 Final [place] .0 Regional mg/dL [facility] Center (Lab): [address] [place] [address] 03/28/2019 Hemoglobin + Low Hemoglobin 9.2 g/dL 10.5-1 Final [place] Hematocrit, 5.7 Regional Blood g/dL [facility] Center (Lab): [address] [place] [address] Low Hematocrit 29.9 % 34.0-5 Final [place] 0.0 % [facility] (Lab): [address] [place] [address] 03/28/2019 Hemoglobin + Low Hemoglobin 8.9 g/dL 10.5-1 Final [place] Hematocrit, 5.7 Regional Blood g/dL [facility] Center (Lab): [address] [place] [address] Low Hematocrit 29.7 % 34.0-5 Final [place] 0.0 % [facility] (Lab): [address] [place] [address] 03/28/2019 Hemoglobin + Low Hemoglobin 9.1 g/dL 10.5-1 Final [place] Hematocrit, 5.7 [facility] Blood g/dL [facility] (Lab): [address] [place] [address] Low Hematocrit 30.2 % 34.0-5 Final [place] 0.0 % [facility] (Lab): [address] [place] [address] 03/28/2019 Hemoglobin + Low Hemoglobin 8.6 g/dL 10.5-1 Final [place] Hematocrit, 5.7 Regional Blood g/dL [facility] Center (Lab): [address] [place] [address] Low Hematocrit 28.0 % 34.0-5 Final [place] 0.0 % [facility] (Lab): [address] [place] [address] 03/28/2019 Hemoglobin + Low Hemoglobin 8.8 g/dL 10.5-1 Final [place] Hematocrit, 5.7 [facility] Blood g/dL [facility] Center (Lab): [address] [place] [address] Low Hematocrit 29.1 % 34.0-5 Final [place] 0.0 % [facility] (Lab): [address] [place] [address] 03/27/2019 TSH, Serum or High Thyroid 12.30 0.36-3 Final [place] Plasma Stimulating uIU/mL .74 Regional Hormone L uIU/mL Medical Center (Lab): [address] [place] [address] 03/27/2019 Hemoglobin + Normal Hemoglobin 5.9 g/dL 10.5-1 Final [place] Hematocrit, 5.7 Regional Blood g/dL [facility] Center (Lab): [address] [place] [address] Normal Hematocrit 20.4 % 34.0-5 Final [place] 0.0 % [facility] (Lab): [address] [place] [address] 03/27/2019 PT/INR Normal Prothrombin 12.1 10.3-1 Final [place] Time seconds 2.3 [facility] (Lab): [address] [place] [address] Normal Inr 1.16 Final [place] [facility] (Lab): [address] [place] [address] 03/27/2019 BMP, Serum or Normal Glucose 91 mg/dL 74-106 Final [place] Plasma mg/dL [facility] (Lab): [address] [place] [address] Normal Blood Urea 8 mg/dL 6-20 Final [place] Nitrogen mg/dL [facility] (Lab): [address] [place] [address] Low Osmolality 277 280-30 Final [place] Calculated,seru mOsm/kg 0 Regional m mOsm/k Medical g Center (Lab): [address] [place] [address] Low Creatinine 0.4 mg/dL 0.50-0 Final [place] .90 Regional mg/dL [facility] Center (Lab): [address] [place] [address] Normal Glomerular >60.00 Final [place] Filtration Rate [facility] (Lab): [address] [place] [address] Normal BUN/creatinine 20.0 12-20 Final [place] Ratio [facility] (Lab): [address] [place] [address] Normal Sodium Level 140 135-14 Final [place] mmol/L 5 [facility] mmol/L Medical Center (Lab): [address] [place] [address] Normal Potassium 3.8 3.5-5. Final [place] Level mmol/L 2 [facility] mmol/L [facility] (Lab): [address] [place] [address] Normal Chloride Level 106 98-108 Final [place] mmol/L mmol/L [facility] (Lab): [address] [place] [address] Normal Co2 25 mmol/L 21-32 Final [place] mmol/L [facility] (Lab): [address] [place] [address] Normal Anion Gap 12.8 12-20 Final [place] mEq/L mEq/L [facility] (Lab): [address] [place] [address] Low Calcium Level 8.1 mg/dL 8.6-10 Final [place] .0 Regional mg/dL [facility] Center (Lab): [address] [place] [address] 03/27/2019 Prealbumin, Low Pre-albumin 8.0 mg/dL 20-40 Final [place] Serum mg/dL [facility] (Lab): [address] [place] [address] 03/27/2019 Phosphorus, Normal Phosphorous 2.6 mg/dL 2.5-4. Final [place] Serum or Level 5 Regional Plasma mg/dL Medical Center (Lab): [address] [place] [address] 03/27/2019 Magnesium, Normal Magnesium 1.8 mg/dL 1.6-2. Final [place] QN, Level 6 Regional Unspecified mg/dL Medical Specimen Center (Lab): [address] [place] [address] 03/27/2019 Iron + Total Low Iron (Fe) 26 ug/dL 37-145 Final [place] Iron-binding ug/dL [facility] ([facility]), Serum Center (Lab): [address] [place] [address] Normal Total Iron 337 ug/dL 260-44 Final [place] Binding 5 Regional Capacity ug/dL Medical Center (Lab): [address] [place] [address] Low % Saturation 8 % 12-45 Final [place] % [facility] (Lab): [address] [place] [address] 03/27/2019 Type + Rh Bld 3+ Final [place] Screen, Blood [facility] (Lab): [address] [place] [address] ABO + Rh Pnl O Final [place] Bld positive [facility] (Lab): [address] [place] [address] 03/27/2019 Type + Cross, Type + Xm Pnl Final [place] Blood Bld [facility] (Lab): [address] [place] [address] 03/27/2019 Upc Results Final [facility] (Lab): [address] [place] [address] 03/27/2019 Up Results Final [facility] (Lab): [address] [place] [address] 03/27/2019 Upc Results Final [facility] (Lab): [address] [place] [address] 03/27/2019 Upc Results Final [facility] (Lab): [address] [place] [address] 03/27/2019 Upc Results Final [facility] (Lab): [address] [place] [address] 03/27/2019 Up Results Final [facility] (Lab): [address] [place] [address] 03/27/2019 Up Results Final [facility] (Lab): [address] [place] [address] 03/27/2019 Up Results Final [facility] (Lab): [address] [place] [address] 03/27/2019 Upc Results Final [facility] (Lab): [address] [place] [address] 03/27/2019 Upc Results Final [facility] (Lab): [address] [place] [address] 03/27/2019 Hemoglobin + Normal Hemoglobin 7.4 g/dL 10.5-1 Final [place] Hematocrit, 5.7 [facility] Blood g/dL Medical Center (Lab): [address] [place] [address] Normal Hematocrit 24.5 % 34.0-5 Final [place] 0.0 % [facility] (Lab): [address] [place] [address] 03/27/2019 Upc Results Final [place] [facility] (Lab): [address] , [place] 03/27/2019 Upc Results Final [place] [facility] (Lab): 104 , [place] 03/27/2019 Upc Results Final [place] [facility] (Lab): 104 , [place] 03/27/2019 Upc Results Final [place] [facility] (Lab): 104 , [place] 03/27/2019 Upc Results Final [place] [facility] (Lab): 104 , [place] 03/27/2019 Upc Results Final [facility] (Lab): 104 , [place] 03/27/2019 Hemoglobin + Low Hemoglobin 8.5 g/dL 10.5-1 Final [place] Hematocrit, 5.7 Regional Blood g/dL Medical Center (Lab): 104 [facility] Low Hematocrit 28.2 % 34.0-5 Final [place] 0.0 % [facility] (Lab): 104 [facility] 03/27/2019 Hemoglobin + Low Hemoglobin 8.2 g/dL 10.5-1 Final [place] Hematocrit, 5.7 Regional Blood g/dL [facility] Center (Lab): 104 7[address] [facility] Low Hematocrit 27.8 % 34.0-5 Final [place] 0.0 % [facility] (Lab): [address] [place] [address] 03/27/2019 Upc Results Final [facility] (Lab): 104 , [place] 03/27/2019 Upc Results Final [facility] (Lab): 104 , [place] 03/27/2019 Upc Results Final [place] [facility] (Lab): 104 , [place] 03/27/2019 Upc Results Final [place] [facility] (Lab): 104 , [place] 03/27/2019 Upc Results Final [place] [facility] (Lab): 104 [facility], [place] 03/27/2019 Upc Results Final [facility] (Lab): 104 [address] , [place] 03/27/2019 Upc Results Final [place] [facility] (Lab): 104 [facility], [place] 03/27/2019 Upc Results Final [place] [facility] (Lab): [address] [place] [address] 03/26/2019 CMP, Serum or Normal Glucose 101 mg/dL 74-106 Final [place] Plasma mg/dL [facility] (Lab): [address] [place] [address] Normal Blood Urea 10 mg/dL 6-20 Final [place] Nitrogen mg/dL [facility] (Lab): [address] [place] [address] Low Osmolality 271 280-30 Final [place] Calculated,seru mOsm/kg 0 Regional m mOsm/k [facility] (Lab): [address] [place] [address] Normal Creatinine 0.5 mg/dL 0.50-0 Final [place] .90 Regional mg/dL [facility] Center (Lab): [address] [place] [address] Normal Glomerular >60.00 Final [place] Filtration Rate [facility] (Lab): [address] [place] [address] Normal BUN/creatinine 20.0 12-20 Final [place] Ratio [facility] (Lab): [address] [place] [address] Normal Sodium Level 136 135-14 Final [place] mmol/L 5 Regional mmol/L [facility] (Lab): [address] [place] [address] CRITICAL Potassium 2.5 3.5-5. Final [place] LOW Level mmol/L 2 [facility] mmol/L [facility] Center (Lab): [address] [place] [address] Normal Chloride Level 100 98-108 Final [place] mmol/L mmol/L [facility] (Lab): [address] [place] [address] Low Co2 19 mmol/L 21-32 Final [place] mmol/L [facility] (Lab): [address] [place] [address] Normal Anion Gap 19.5 12-20 Final [place] mEq/L mEq/L [facility] (Lab): [address] [place] [address] Normal Calcium Level 8.8 mg/dL 8.6-10 Final [place] .0 Regional mg/dL [facility] Center (Lab): [address] [place] [address] Normal Total Protein 7.2 g/dL 6.6-8. Final [place] 7 g/dL [facility] (Lab): [address] [place] [address] Normal Albumin 4.0 g/dL 3.5-5. Final [place] 2 g/dL [facility] (Lab): [address] [place] [address] Normal Globulin 3.2 gm/dL Final [facility] (Lab): [address] [place] [address] Normal A/g Ratio 1.3 >1.0 Final [facility] (Lab): [address] [place] [address] Normal Bilirubin,tota 0.3 mg/dL 0.0-1. Final [place] l 2 Regional mg/dL [facility] Center (Lab): [address] [place] [address] Normal AST/SGOT 28 U/L 15-32 Final [place] U/L [facility] (Lab): [address] [place] [address] Normal ALT/SGPT 15 U/L 0-33 Final [place] U/L [facility] (Lab): [address] [place] [address] High Alkaline 282 U/L 35-105 Final [place] Phosphatase, U/L [facility] (Lab): [address] [place] [address] 03/26/2019 CK (Creatine Normal Creatine 168 U/L 20-180 Final [place] Kinase), Kinase U/L [facility] Total, Serum Medical Center (Lab): [address] [place] [address] 03/26/2019 Pro BNP (Pro High N-term Pro 350 pg/mL 0-125 Final [place] B-type Natriuretic pg/mL [facility] Natriuretic Peptide Medical Peptide), Center Serum or (Lab): [address] [place] [address] 03/26/2019 Troponin I, Normal Cardiac <0.30 0.0-0. Final [place] Cardiac, Troponin I NG/mL 5 Regional Quant, Blood NG/mL Medical Center (Lab): [address] [place] [address] 03/26/2019 CK-mb, Blood Normal Mass 3.1 NG/mL 0.0-3. Final [place] Creatinine 6 Regional Kinase-mb NG/mL [facility] Center (Lab): [address] [place] [address] 03/26/2019 Urinalysis, Normal Color, Urine light Final [place] Complete yellow [facility] (Lab): [address] [place] [address] Normal Appearance, clear clear Final [place] Urine [facility] (Lab): [address] [place] [address] Normal Urine Glucose negative negati Final [place] ve [facility] (Lab): [address] [place] [address] Normal Bilirubin, negative negati Final [place] Urine ve [facility] (Lab): [address] [place] [address] Normal Ketone, Urine negative negati Final [place] ve [facility] (Lab): [address] [place] [address] Normal Specific <=1.005 1.003- Final [place],urine 1.030 [facility] (Lab): [address] [place] [address] Normal Blood Urine negative negati Final [place] ve [facility] (Lab): [address] [place] [address] Normal pH,urine 7.000 5-9 Final [place] [facility] (Lab): [address] [place] [address] Normal Protein Urine negative negati Final [place] (UA) ve [facility] (Lab): [address] [place] [address] Normal Urobilinogen, 0.2 0.2-1. Final [place] Urine E.U./dL 0 [facility] E.U./d [facility] (Lab): [address] [place] [address] Normal Nitrate, Urine negative negati Final [place] ve [facility] (Lab): [address] [place] [address] Normal Urine negative negati Final [place] Leukocyte ve [facility] (Lab): [address] [place] [address] Normal RBC, Urine =0-3 0-5 Final [place] /[hpf] /[hpf] [facility] (Lab): [address] [place] [address] Normal WBC, Urine =0-2 0-5 Final [place] /[hpf] /[hpf] [facility] (Lab): [address] [place] [address] Normal Epithelial =0-5 0-5 Final [place] Cell /[hpf] /[hpf] [facility] (Lab): [address] [place] [address] Normal Bacteria, none none Final [place] Urine detected detect Regional /[hpf] /[hpf] Medical Center (Lab): [address] [place] [address] Normal Urine Culture no Final [place] Added? [facility] (Lab): [address] [place] [address] 03/26/2019 Phosphorus, Low Phosphorous 1.5 mg/dL 2.5-4. Final [place] Serum or Level 5 Regional Plasma mg/dL Medical Center (Lab): [address] [place] [address] 03/26/2019 Magnesium, Normal Magnesium 1.8 mg/dL 1.6-2. Final [place] QN, Level 6 Regional Unspecified mg/dL Medical Specimen Center (Lab): [address] [place] [address] 03/26/2019 Type + Rh Bld 3+ Final [place] Screen, Blood [facility] (Lab): [address] [place] [address] ABO + Rh Pnl O Final [place] Bld positive [facility] (Lab): [address] [place] [address] 03/26/2019 Type + Cross, Type + Xm Pnl unit Final [place] Blood Bld number: [facility] [id number] [place] [id number] Center (Lab): [address] [place] [address] 03/26/2019 Upc Results Final [facility] (Lab): [address] [place] [address] 03/26/2019 Upc Results Final [facility] (Lab): [address] [place] [address] 03/26/2019 Upc Results Final [facility] (Lab): [address] [place] [address] 03/26/2019 Upc Results Final [facility] (Lab): [address] [place] [address] 03/26/2019 Upc Results Final [facility] (Lab): [address] [place] [address] 03/26/2019 Upc Results Final [facility] (Lab): [address] [place] [address] 03/26/2019 Upc Results Final [facility] (Lab): [address] [place] [address] 03/26/2019 Upc Results Final [facility] (Lab): [address] [place] [address] 03/26/2019 Upc Results Final [facility] (Lab): [address] [place] [address] 03/26/2019 Upc Results Final [facility] (Lab): [address] [place] [address] 03/26/2019 Upc Results Final [facility] (Lab): [address] [place] [address] 03/26/2019 Upc Results Final [facility] (Lab): [address] [place] [address] Allergies Code Code System Name Reaction Severity Status Onset NKDA Problems No Known Problems Procedures Date Name Performed by 10/21/2012 Back Surgery Information not available Stomach Surgery Procedure Information not available Cholecystectomy Information not available Vaccine List Vaccine Type influenza, injectable, quadrivalent 04/06/2019 pneumococcal conjugate PCV 13 04/06/2019 Social History Tobacco Smoking Status Never Smoker Past Encounters 04/24/2019 Gastrointestinal Hemorrhage Temo Berrios MD: [address], [place] [address] , Ph. [phone] 04/12/2019 Iron Deficiency Anemia Tex Yip MD: [address], [place] [address], Ph. History of Present Illness Note: Pt was seen in the hospital for profound anemia. Has a history of gastric bypass so was evaluated by EGD but was negative for marginal ulcer. Was transferred to [place] for further evaluation. Was seen in three other hospitals per pt and source of bleeding was apparently never identified. Was discharged with hgb 10.8 per pt<div>Pt is requesting that I revise the FMLA given by Dr Yip to let her go back to work. Discussed that he will have to provide any changes to FMLA</div><div>Discussed that records from her other hospitalizations are not "loaded up" into the computer. Requires request of records, so cannot review her other workup.</div><div>Pt has a hysterectomy and bladder suspension scheduled by a continence expert in [place] Dr. David. Is requesting that I do the hysterectomy and suspension so that she can get it done sooner. I explained that I do not do those procedures and she asked if anyone else in the are does. Discussed Daisha Walsh and Ozzy but I encouraged her to avoid fragmenting her care. </div>&lt ;div>She asked that I explain what fragmenting her care meant - I discussed need to coordinate care with the same physicians thatdo her workup. In the case of her gi bleeding needs to continue to see the specialists in [place] that can perform small bowel endoscopy. This is not available here. In the case of her incontinence issues, she is best treated by the specialist that has done the workup. In the case of her FMLA, Dr. Yip is coordinating her care as her family physician and it would be inadvisable to try to circumventhis treatment plans.</div><div>Have recommended she follow up with provider in [place] that was able to perform small bowel endoscopy.</div> Review of Systems General Surgery ROS Reported By: Patient Constitutional: Constitutional: no fever, no night sweats, no significant weight gain, no significant weight loss, no exercise intolerance Eyes: Eyes: no dry eyes, no irritation, no vision change ENMT: Ears: no difficulty hearing, no ear pain. Nose: no frequent nosebleeds, no nose/sinus problems. Mouth/Throat: no sore throat, no bleeding gums, no snoring, no dry mouth, no mouth ulcers, no oral abnormalities, no teeth problems, No Post Nasal Dripping, Constantly clearing the throat, hiccups, itching throat, (normal) weak voice: constant Respiratory: Respiratory: no cough, no wheezing, no shortness of breath, no coughing up blood Cardiovascular: Cardiovascular: no chest pain, no arm pain on exertion, no shortness of breath when walking, no shortness of breath when lying down, no palpitations, no known heart murmur Gastrointestinal: Gastrointestinal: no abdominal pain, no vomiting, [...] numbness, no seizures, no dizziness, no headaches Physical Exam Pre-Op Exam Reported By: Patient Constitutional: General Appearance: healthy-appearing, well-nourished, well-developed Psychiatric: Orientation: to time, to place, to person Skin: Inspection and palpation: no rash, no lesions, no induration Eyes: Pupils: PERRLA. EOM: EOMI ENMT: Lips, Teeth, and Gums: normal dentition Neck: Neck: supple, FROM Lungs: Auscultation: breath sounds normal, CTA except as noted, no wheezing, no rales/crackles, no rhonchi Cardiovascular: Heart Auscultation: RRR, no murmurs, no rubs, no gallops. Neck vessels: no carotid bruits. Pulses including femoral / pedal: normal throughout Abdomen: Bowel Sounds: normal. Inspection and Palpation: soft, non-distended, no tenderness (no guarding, no rebound), no masses, no CVA tenderness. Liver: non-tender, no hepatomegaly. Spleen: non-tender, no splenomegaly Back: Thoracolumbar Appearance: normal curvature Musculoskeletal:: Joints, Bones, and Muscles: normal movement of all extremities, no malalignment, no tenderness. Extremities: no cyanosis, no edema, no varicosities Neurologic: Gait and Station: normal gait, normal station. Cranial Nerves: grossly intact. Sensation: grossly intact. Reflexes: DTRs 2+ bilaterally throughout
[2019-05-21] MEDS ORDERED: Ringers Lactate 1,000 ML IV ONE ×3 (11:00→15:28)
[2019-05-21] MEDS ORDERED: SCOPOLAMINE HYDROBROMIDE PATCH TD ONE (11:31)
[2019-05-21] MEDS ORDERED: dexAMETHasone 10 MG/ML VIAL ONE (12:03)
[2019-05-21] MEDS ORDERED: propofoL 200 MG/20 ML VIAL IV ONE (12:03)
[2019-05-21] MEDS ORDERED: ROCURONIUM 50 MG/5 ML VIAL IV ONE (12:03)
[2019-05-21] MEDS ORDERED: FENTANYL CITR 250 MCG/5 ML ONE ×2 (12:03→14:16)
[2019-05-21] MEDS ORDERED: LIDOCAINE 2% MPF 5 ML VIAL ONE (12:03)
[2019-05-21] MEDS ORDERED: MIDAZOLAM HCL 2 MG/2 ML INJ ONE (12:04)
[2019-05-21] MEDS ORDERED: ONDANSETRON 4 MG/2 ML VIAL ONE (12:05)
[2019-05-21] MEDS ORDERED: NA CHLORIDE 0.9% 100 ML IV ONE (12:07)
[2019-05-21] MEDS ORDERED: CEFAZOLIN/SWI 1gm 1 GM/10 ML SYR ONE (12:07)
[2019-05-21] MEDS: CEFAZOLIN/SWI 2gm 2 GM/20 ML SYR ONE ×2 (12:26→13:25)
[2019-05-21] MEDS ORDERED: EPHEDRINE SULF 50 MG/ML VIAL ONE (13:44)
[2019-05-21] MEDS: BUPIVACAINE 0.25% PF 30 ML VIAL ONE ×2 (13:52→16:30)
[2019-05-21] MEDS: VASOPRESSIN 20 UNIT/ML VIAL ONE ×3 (14:34→17:28)
[2019-05-21] MEDS ORDERED: KETOROLAC 30 MG/ML INJ ONE (17:13)
[2019-05-21] MEDS ORDERED: ZOLPIDEM TARTRATE 5 MG TABLET PO PRN (18:24)
[2019-05-21] MEDS ORDERED: ONDANSETRON 4 MG/2 ML VIAL IV PRN (18:25)
[2019-05-21] MEDS ORDERED: PROMETHAZINE INJ 25 MG/ML AMP IV PRN (18:25)
[2019-05-21] MEDS ORDERED: PROMETHAZINE INJ 25 MG/ML AMP ONE (18:29)
[2019-05-21] MEDS: HYDROMORPHONE HCL 1 MG/ML INJ ONE ×2 (18:29→18:34)
[2019-05-21] MEDS: HYDROMORPHONE HCL 2 MG/ML inj ONE ×4 (18:39→18:57)
[2019-05-21] MEDS ORDERED: Ringers Lactate 1,000 ML IV SCH (19:00)
[2019-05-21] MEDS: HYDROCODONE/APAP 5/325 MG TAB PO PRN (20:58)
[2019-05-21 21:06] VITALS: BMI 24.9
[2019-05-22] MEDS: IBUPROFEN 200 MG TAB PO PRN ×2 (00:30→08:01)
[2019-05-22] MEDS: HYDROCODONE/APAP 5/325 MG TAB PO PRN ×2 (03:50→10:01)
[2019-05-22 04:00] VITALS: O2SAT 98
[2019-05-22 04:24] LABS: Absolute Lymphocytes (CBC) 1.1 K/uL (0.7-4.9); Basophils % 0.4 % (0-1.3); Hematocrit 30.1 % (36.0-45.0); Lymphocytes % 10.3 % (15.3-44.8); MPV 8.2 fL (7.6-11.3); RBC Red Blood Cell Count 3.33 M/uL (3.86-4.86)
--- NOTE | 2019-05-22 05:23 | OP ---
Date of Procedure: 05/21/2019 Surgeon: Jie David MD Crm Specialist: Lacy Lewis. Preoperative Diagnoses: Incomplete uterovaginal prolapse, stress urinary incontinence, menopausal sy mptoms. Postoperative Diagnoses: Incomplete uterovaginal prolapse, stress urinary incontinence, menopausal s ymptoms and posterior distal rectovaginal septal defect (rectocele), and perineal body defect. Procedures Performed: Total laparoscopic hysterectomy, bilateral salpingo-oophorectomy, uterosacral ligament suspension, colpopexy, cystoscopy, midurethral sling TVT-O, distal posterior repair and sylvia mrau body repair, umbilical hernia repair. Estimated Blood Loss: 100. Specimens: Uterus, bilateral tubes, and ovaries. Complications: No complications. Drains: Rosario catheter. Condition: Patient's condition is stable. Indications: Patient is a 54-year-old with symptomatic bulge and then on testing occult stress urina ry incontinence. All the alternatives including observation with physical therapy, pessary, and surg juan antonio were all reviewed, repair with primary tissue repair understanding the ligament versus graft augm ented sacrocolpopexy were all reviewed. Benefits and risks reviewed except uterosacral ligaments wer e not found to be optimal, then we proceed to sacrocolpopexy. The patient understood this, consented for the bilateral salpingo-oophorectomy. She was not sure initially, but today she preferred to hav e both of her ovaries removed, bleeding, infection, injury to the bowel, bladder and ureters, dyspare unia, urinary retention, catheterization, rare complication of fistula were all reviewed with the pat tremaine. She was consented here in the preop as well. The urodynamics was done in the office. She had a low mid urethral closure pressure, and on reduction stress test, NATHAN was present. So consented fo r a midurethral sling through a transobturator approach. Groin pain, and all the other complications of the above were reviewed with the patient and she was consented. She had a history of recurrent B V and so she was given some Flagyl for 5 days and 1 week's supply to the surgery and then no other an tibiotic other than the preop 2 g of Ancef. Description Of Procedure: After informed consent was verified, she was taken back to OR, placed in s upine fashion on the operating table. General anesthesia given, placed in a dorsal lithotomy positio n using Stefan stirrups. Pelvic exam was performed and the POP-Q was as follows: 0, 0, -3, 4, modera te, 7 cm of TVL, Ap 0, Bp -1, and D -4. Urethral hypermobility as noted in the office. After abdomen, vulva, vagina, and perineum were prepped and draped in a sterile fashion, Rosario was pl aced to drain the bladder and attached with cysto tubing to a bag to retrograde filling and a large V Care was introduced into the uterine cavity without major problems. Due to the ablation, there was s light resistance, but once this was placed, it was left in place. 1 cm infraumbilical incision made with a scalpel using the open laparoscopy technique. Fascia was in cised. As soon as, a small 2 to 3 mm cut was placed on the fascia, I could notice that there was a d efect superior to it, which appeared to be an umbilical hernia. So, the fascia was grasped on all si jorge with the help of a Funmilayo and Allis clamps. Then, 0 Vicryl suture was placed, tagged to each end . Osiris introduced. After peritoneum was entered bluntly, the preperitoneal fat was reduced back a nd S-retractors placed Osiris introduced. Site of entry was checked, unremarkable. Upper abdominal surfaces with adhesions to the anterior abdominal wall from the omentum from her stomach cancer surge ry. After patient was placed , two 5 mm ports and one 10 mm suprapubic port were placed under d irect vision. Then, ureters were identified from the pelvic brim to the ureteric tunnel. There was no distortion. The left uterosacral ligament was very prominent and the right uterosacral to be figu red out, so decided that I would perform a uterosacral suspension, then went on to proceed with a hys terectomy. The mesosalpinx and tube were removed on the left side. Then, IP ligament on the left si de was taken. The meso-ovarian was cut and . Then, round ligament was taken. Broad ligame nt was opened up and anterior broad ligament was opened up and the peritoneum raised all the way to t he opposite side posteriorly taken down to the uterosacral ligament and broad ligament was skeletoniz ed and the vessels were identified on the left side. So, in the opposite side similar dissection was performed. Then, bladder flap was raised by dissecting the bladder inferiorly, anteriorly exposing the anterior vaginal wall. Then, the vessels were exposed. Vessels were taken down with the help of the LigaSure, then with the help of the bipolar cauterized. Clips had to be placed at the level of the uterine vessels laterally. The same thing on the left side after taking down the vessels with th e bipolar and LigaSure and clips were placed. Then, cardinal ligaments were taken down moderately an d then circumferential colpotomy performed with a monopolar hook blade. Specimen was detached and re moved through the vagina. The tube on the right side was also removed. Then, closure with PDS inter rupted x5, 2 simple on both angles and then 3 [id number] in the center. There was bleeding fro m the vessels slightly posterior and distal to the uterine vessels. These were picked up and this wa s when the clips were placed at the level of taking the uterines along with them, probably this was l ikely the uterine vein or maybe an innominate branch. So, once the clips were placed 2 on each side, then, there was excellent hemostasis. Thorough irrigation and suction were performed, then the clos ure of the vaginal cuff was done. Then, the uterosacral ligaments were identified. The ureter was identified at the level of the cross ing of the uterine vessel and then the relation to the distal uterosacral was identified and the Adel -Yan suture was taken through the uterosacral ligament medial to lateral, then from lateral to medial and then through the posterior vaginal wall including the proximal rectovaginal septum and then the anterior vaginal wall with the connective tissue as well. The bladder was dissected down at least an other 1.5 cm in order for me to create room to take the side. Once this was done, this was tied down on the side and similar stitch was taken to the opposite side. The uterosacral ligament had to be p icked up and identified, then the suture was placed from medial to lateral, lateral to medial, and th en posterior vaginal wall and the anterior vaginal wall tied together. One of the 2 clips had fallen off and this was replaced and there was still excellent hemostasis. There was no bleeding. All the pedicles were checked. Thorough irrigation and suction were performed. All the trocars were remove d under direct vision, and cystoscopy was performed with a 17-Italian sheath. Strong jets of urine fr om both ureteric orifices without any problems with foreign body. Cystoscopy was done after the midu rethral sling was performed. There was no evidence of any bladder perforation either. The umbilical defect was visualized, then the surrounding tissue was dissected to expose the fascial edges and then Allis clamps x4 were placed 2 on each side. Then, 0 PDS sutures were taken, 2 figures -of-eight were placed, 1 on the top and 1 on the bottom to close the defect. So this was the complet ion of the umbilical hernia repair. Then, subcutaneous tissues were closed with 3-0 chromic x1 and t hen the fascia at the umbilical suprapubic incision closed with the help of simple 0 Vicryl stitch. All the skin incisions x4 were closed with the help of interrupted 4-0 Vicryl sutures. Rosario was left in place. Midurethral area was picked up with the help of 2 Allis clamps, injected wi th 10 mL of dilute vasopressin centered on both sides. An incision 1 cm was placed in a midurethral area. Dissection was carried under the plane below the connective tissue and towards each inferior p ubic ramus into the obturator space. Once the obturator membrane was perforated, the scissors were o pened up to create a track first on the right, then on the left side. Then, the wing guide was place d appropriately. Crow was passed through on both sides. The exit point on the spike was 2 cm later al to the groin fold. Significantly inferior to the adductor tendon slightly above the horizontal li ne dropped at the level of the urethral meatus. A similar pass on the opposite side, sling was tensi oned with Soo underneath the urethra. Then, plastic sheaths were pulled out along with dilators. Closure with 3-0 Vicryl in a continuous running horizontal mattress fashion . Rosario was replaced and posterior repair perineorrhaphy was performed. Two Allis clamps were placed at the torn 2 cm gap between these two ends. A arpit-shape d incision was made after injecting with dilute vasopressin. The posterior vaginal wall, especially the distal 1/3rd and then the lateral perineal body area and on the perineum itself. Then, with a sc alpjasper, this incision was made at least 2 cm into the direct posterior wall and on the perineal body a nd on the perineum, so all this tissue, skin and subcutaneous tissue were dissected from the rectovag inal septum. I could see the defect and the separation from the old scar of the episiotomy. On veri fication with the rectovaginal finger, I could feel the defect, so the fascial edges were all trimmed and the epithelium and subepithelium of the vagina was all raised and once the connective tissue was well exposed, this was brought together with the help of a 2-0 Vicryl in a continuous running fashio n all the way down to the perineum. The perineal body was reattached. Then, the suture was taken ba ck up and a knot was placed in the posterior wall. Then, on the right side, the vaginal epithelium a nd the perineal area of the scar from her episiotomy was present was trimmed out and then closure wit h the help of 2-0 Vicryl in a continuous running fashion by pulling the proximal ends of the vaginal epithelium down to the perineal body, the closure was performed in a transverse fashion. Once this w as done, the perineal body was reconstructed as well with the 2-0 Vicryl and then 3-0 Vicryl was used to finish the skin and subcutaneous closure of the perineal body. Rectal exam was performed negativ e. Instrument, needle, and sponge counts were correct x3 at the end of the case. The patient tolera cristel the procedure well. She will keep her Rosario and vaginal packing, Dermabond placed at the incisio ns in the groins. She will have a voiding trial in the morning and after the packing was done, Rosario was removed, and she will be going home if she empties without a catheter and if she fails a voiding trial with a Rosario for 3 to 4 days. BIANCA/LESLY Voice ID: [id number] Report ID: [id number]
[2019-05-22] MEDS ORDERED: LEVOTHYROXINE SOD 0.075 MG TAB PO SCH (06:30)
[2019-05-22 08:06] VITALS: BP 115/57; TEMP 98.1
[2019-05-22] MEDS ORDERED: SERTRALINE HCL 100 MG TAB PO SCH (09:00)
== END 2019-05-22 10:40 | disposition home or self-care (01) ==
LOC: OR 10:17 → 2ND-WC 18:25 → OR 05-22 10:40
PROVIDERS: ATTEND Obstetrics & Gynecology
PROC: 0UT24ZZ Resection of Bilateral Ovaries, Percutaneous Endoscopic Approach (ICD-10-PCS; 2019-05-21)
PROC: 0UT74ZZ Resection of Bilateral Fallopian Tubes, Percutaneous Endoscopic Approach (ICD-10-PCS; 2019-05-21)
PROC: 0USG7ZZ Reposition Vagina, Via Natural or Artificial Opening (ICD-10-PCS; 2019-05-21)
PROC: 0TSD4ZZ Reposition Urethra, Percutaneous Endoscopic Approach (ICD-10-PCS; 2019-05-21)
PROC: 0WQF0ZZ Repair Abdominal Wall, Open Approach (ICD-10-PCS; 2019-05-21)
PROC: 0UT94ZZ Resection of Uterus, Percutaneous Endoscopic Approach (ICD-10-PCS; principal; 2019-05-21 12:00)
DX: N81.2 Incomplete uterovaginal prolapse (principal); N39.3 Stress incontinence (female) (male); N76.1 Subacute and chronic vaginitis; N95.1 Menopausal and female climacteric states
CPT/HCPCS: 85025 ×2; 80048; 36415 ×2; 86900; 86850; 85610; 86901; 88307; 85730; 81003; 58571; 57283; 51992; 49585; J2704; J2550; J2250; J1170 ×2; J3010 ×2; J1100; J0690 ×2; J7120 ×5; J2405